=== PATIENT | female | born 1935 | race Caucasian/White ===

== ENCOUNTER 2022-09-23 14:54 | Emergency (ER) | payer MEDICARE, OTHER ==
--- NOTE | 2022-09-23 14:58 | ED Physician Documentation ---
History of Present Illness - Stated complaint Stated Complaint: KRIS/CONFUSED - History obtained from History obtained from: EMS - Additonal information Additional information: This is an 87-year-old woman who presents by ambulance. She is unable to give much of a history due to dementia. Reportedly lives with her son and arrives because [employer] was worried about her during a welfare check. She is disheveled and covered in feces. There is no running water in the house. Reportedly is not eating or drinking much. Reportedly the son is just not very supportive. She has a history of hypertension and diabetes which is currently untreated. She is on no meds. PD PAST MEDICAL HISTORY - Allergies Allergies/Adverse Reactions: Allergies Allergy/AdvReac Type Severity Reaction Status Date / Time Unable to Assess Allergy Verified 09/23/22 15:05 PD ED PE NORMAL - Vitals Vital signs reviewed: Yes - General General: Other (She is alert and oriented to person but not place or time or events; She is disheveled. There is feces on her socks.) - HEENT HEENT: PERRL, EOMI - Neck Neck: Supple, no meningeal sign, No bony TTP - Cardiac Cardiac: RRR, No murmur - Respiratory Respiratory: No respiratory distress, Clear bilaterally - Abdomen Abdomen: Normal bowel sounds, Soft, Non tender - Back Back: No CVA TTP, No spinal TTP - Derm Derm: Normal color, Warm and dry, Other (Rolled, no bedsores) - Extremities Extremities: No edema, No calf tenderness / cord - Neuro Eye Opening: Spontaneous Motor: Obeys Commands Verbal: Confused GCS Score: 14 Results - Vitals Vitals: Vital Signs - 24 hr 09/23/22 09/23/22 09/23/22 15:02 15:18 15:53 Temperature 37.1 C Heart Rate 79 72 Respiratory 18 18 16 Rate Blood Pressure 138/103 H O2 Saturation 98 96 09/23/22 09/23/22 09/23/22 16:36 17:53 18:32 Temperature Heart Rate 68 72 Respiratory 16 16 18 Rate Blood Pressure 176/154 H O2 Saturation 98 98 Oxygen O2 Source Room air - EKG (time done) 1639 Rate: Rate (enter#) (68) Rhythm: NSR [place]: Normal Intervals: Normal DE QRS: LVH Ischemia: Normal ST segments - Labs Labs: Laboratory Tests 09/23/22 09/23/2209/23/23 15:19 15:19 15:23 WBC RBC Hgb Hct MCV MCH MCHC RDW Plt Count MPV Neut # (Auto) Lymph # (Auto) [place] # (Auto) Eos # (Auto) Baso # (Auto) Absolute Nucleated RBC Nucleated RBC % Sodium Potassium Chloride Carbon Dioxide Anion Gap BUN Creatinine Estimated GFR (MDRD) Glucose Calcium Total Bilirubin AST ALT Alkaline Phosphatase Total Protein Albumin Globulin Albumin/Globulin Ratio Lipase TSH Urine Color YELLOW Urine Clarity CLOUDY Urine pH 7.5 Ur Specific [place] 1.015 Urine Protein NEGATIVE Urine Glucose (UA) NEGATIVE Urine Ketones TRACE Urine Occult Blood SMALL H Urine Nitrite NEGATIVE Urine Bilirubin NEGATIVE Urine Urobilinogen 0.2 (NORMAL) Ur Leukocyte Esterase SMALL H Urine RBC 6-10 H Urine WBC 6-10 H Ur Squamous Epith Cells FEW Squamous Amorphous Sediment Moderate Urine Bacteria Few Ur Microscopic Review INDICATED Urine Culture Comments INDICATED Salicylates Urine Opiates Screen NEGATIVE Ur Oxycodone Screen NEGATIVE Urine Methadone Screen NEGATIVE Ur Propoxyphene Screen NEGATIVE Acetaminophen Ur Barbiturates Screen NEGATIVE Ur Tricyclics Screen NEGATIVE Ur Phencyclidine Scrn NEGATIVE Ur Amphetamine Screen NEGATIVE U Methamphetamines Scrn NEGATIVE U Benzodiazepines Scrn NEGATIVE Urine Cocaine Screen NEGATIVE U Cannabinoids Screen NEGATIVE Ethyl Alcohol SARS-CoV-2 (PCR) NOT DETECTED 09/23/22 09/23/22 09/23/22 15:52 15:52 15:52 WBC 4.9 RBC 4.10 L Hgb 12.9 Hct 39.6 MCV 96.6 MCH 31.5 H MCHC 32.6 RDW 14.2 Plt Count 147 MPV 9.4 Neut # (Auto) 3.5 Lymph # (Auto) 0.9 L [place] # (Auto) 0.3 Eos # (Auto) 0.0 Baso # (Auto) 0.0 Absolute Nucleated RBC 0.00 Nucleated RBC % 0.0 Sodium 132 L Potassium 3.7 Chloride 99 L Carbon Dioxide 23 Anion Gap 10.0 BUN 25 H Creatinine 0.5 Estimated GFR (MDRD) 116 Glucose 109 H Calcium 9.1 Total Bilirubin 0.9 AST 21 ALT 14 Alkaline Phosphatase 44 Total Protein 7.4 Albumin 3.8 Globulin 3.6 Albumin/Globulin Ratio 1.1 Lipase 41 TSH 2.23 Urine Color Urine Clarity Urine pH Ur Specific [place] Urine Protein Urine Glucose (UA) Urine Ketones Urine Occult Blood Urine Nitrite Urine Bilirubin Urine Urobilinogen Ur Leukocyte Esterase Urine RBC Urine WBC Ur Squamous Epith Cells Amorphous Sediment Urine Bacteria Ur Microscopic Review Urine Culture Comments Salicylates < 6.0 Urine Opiates Screen Ur Oxycodone Screen Urine Methadone Screen Ur Propoxyphene Screen Acetaminophen < 10 L Ur Barbiturates Screen Ur Tricyclics Screen Ur Phencyclidine Scrn Ur Amphetamine Screen U Methamphetamines Scrn U Benzodiazepines Scrn Urine Cocaine Screen U Cannabinoids Screen Ethyl Alcohol < 5.0 SARS-CoV-2 (PCR) PD Medical Decision Making - ED course ED course: 87-year-old woman presents because her son has not been caring for her and she is demented. Telepsych saw her and recommended 12.5 mg of Seroquel as needed agitation. She will need to be placed and we will likely need to get guardianship. Possible UTI, pt unable to corroborate any sx so will tx with 5 days macrobid. Departure - Departure Clinical Impression: Inadequate social support Dementia Qualifiers: Dementia type: unspecified type Dementia severity: severe Dementia behavioral or psychological symptom: unspecified whether behavioral, psychotic, or mood disturbance or anxiety Qualified Code(s): F03.C0 - Unspecified dementia, severe, without behavioral disturbance, psychotic disturbance, mood disturbance, and anxiety Condition: Stable
[2022-09-23 15:24] LABS: MUDS CUTOFF CONCENTRATIONS CUTOFF CONC BELOW:
[2022-09-23 15:32] LABS: BILIRUBIN,URINE NEGATIVE (NEGATIVE); GLUCOSE, URINE (UA) NEGATIVE (NEGATIVE); KETONES,URINE (UA) TRACE mg/dL (NEGATIVE); LEUKOCYTE ESTERASE, URINE SMALL (NEGATIVE); NITRITE,URINE NEGATIVE (NEGATIVE); OCCULT BLOOD,URINE SMALL (NEGATIVE); PH,URINE 7.5 PH (5.0-7.5); PROTEIN,URINE NEGATIVE (NEGATIVE); UROBILINOGEN,URINE 0.2 (NORMAL) E.U./dL (NORMAL)
[2022-09-23 15:34] LABS: CLARITY,URINE CLOUDY (CLEAR)
[2022-09-23 15:46] LABS: AMORPHOUS SEDIMENT,UR Moderate /LPF; AMPHETAMINE SCREEN,URINE NEGATIVE (NEGATIVE); BACTERIA,URINE Few /HPF (None Seen); BARBITURATE SCREEN,UR NEGATIVE (NEGATIVE); BENZODIAZEPINES SCREEN, URINE NEGATIVE (NEGATIVE); COCAINE SCREEN URINE NEGATIVE (NEGATIVE); METHADONE SCREEN, URINE NEGATIVE (NEGATIVE); METHAMPHETAMINES SCREEN, URINE NEGATIVE (NEGATIVE); OPIATE SCREEN, URINE NEGATIVE (NEGATIVE); SQUAMOUS EPITHELIAL CELL,UR FEW Squamous (<= Few); THC CANNABINOID SCREEN, URINE NEGATIVE (NEGATIVE); TRICYCLIC ANTIDEPRESSANT,URINE NEGATIVE (NEGATIVE)
[2022-09-23 15:47] LABS: OXYCODONE SCREEN, URINE NEGATIVE (NEGATIVE); PROPOXYPHENE SCREEN, URINE NEGATIVE (NEGATIVE)
[2022-09-23 16:00] LABS: BASOPHILS % (AUTO) 0.4 %; EOSINOPHILS % (AUTO) 0.8 %; HCT - HEMATOCRIT 39.6 % (37.0-47.0); HGB - HEMOGLOBIN 12.9 g/dL (12.0-16.0); LYMPHOCYTES # (AUTO) 0.9 10^3/uL (1.5-3.5); LYMPHOCYTES % (AUTO) 19.3 %; MEAN CORPUSCULAR HEMOGLOBIN 31.5 pg (27.0-31.0); MEAN CORPUSCULAR HGB CONC 32.6 g/dL (32.0-36.0); MEAN CORPUSCULAR VOLUME 96.6 fL (81.0-99.0); MEAN PLATELET VOLUME 9.4 fL (7.9-10.8); MONOCYTES # (AUTO) 0.3 10^3/uL (0.0-1.0); NEUTROPHILS # (AUTO) 3.5 10^3/uL (1.5-6.6); NEUTROPHILS % (AUTO) 72.3 %; PLT - PLATELET COUNT 147 10^3/uL (130-450); RED CELL DISTRIBUTION WIDTH 14.2 % (12.0-15.0); WHITE BLOOD COUNT 4.9 x10^3/uL (4.8-10.8)
[2022-09-23 16:19] LABS: ACETAMINOPHEN < 10 ug/mL (10-30); ALBUMIN 3.8 g/dL (3.2-5.5); ALBUMIN/GLOBULIN RATIO 1.1 (1.0-2.2); ALKALINE PHOSPHATASE 44 IU/L (42-121); ALT ALANINE AMINOTRANSFERASE 14 IU/L (10-60); AST ASPARTATE AMINOTRANSFERASE 21 IU/L (10-42); BILIRUBIN,TOTAL 0.9 mg/dL (0.2-1.0); BUN - BLOOD UREA NITROGEN 25 mg/dL (6-20); CALCIUM 9.1 mg/dL (8.5-10.3); CARBON DIOXIDE - CO2 23 mmol/L (21-32); CHLORIDE 99 mmol/L (101-111); CREATININE 0.5 mg/dL (0.4-1.0); ETOH - ETHANOL < 5.0 mg/dL; GFR - MDRD 116 (>89); GLUCOSE 109 mg/dL (70-100); LIPASE 41 U/L (22-51); POTASSIUM 3.7 mmol/L (3.5-5.0); SALICYLATE < 6.0 mg/dL; SODIUM 132 mmol/L (135-145); TOTAL PROTEIN 7.4 g/dL (6.7-8.2)
--- NOTE | 2022-09-23 19:00 | TELEPSYCH PHYS NOTE ---
Telepsych Consultation Note Consult: Name: Ismael JudgeB: 1935 DateandTime: 09/23/2022 9:10:45 PM Location of the patient: [facility] of the doctor: Dali Length of consult: 60min This evaluation was conducted via video telepsychiatry with the assistance of onsite staff Reason for consult: dementia Requested by: HARI ZABALA History of Present Illness: PT is a 87y/o female brought in after being found unkempt, disheveled and covered in feces. She ate as if she were starving. She is unable to provide history, stating "I don't know what happen". "Police come to house, I was going to eat bread, chicken and vegetable. I took last medicine but no refill. I see PA." PT said she did not know where she was. She was not able to answer any direct questions. IT was reported that she lives with her son and APS was contacted for concerns of neglect. Her water was shut off due to nonpayment in June. Collateral Contacted: [place] for not contacting the collateral:None available Sleep issues?: Unknown-NA Psychiatric History/Treatment History: Past diagnoses: unknown Hospitalizations: Unknown-NA Current Treatment:No Suicide Assessment: PSS-3: 1) Over the past 2 weeks have you felt down, depressed or hopeless?Unknown-NA 2) Over the past 2 weeks have you had thoughts of killing yourself?Unknown-NA 3) Have you ever in your life attempted to kill yourself?Unknown-NA Within the past 6 months? [facility] Safety Assessment: Risk Factors Stressors: inability to care for own needs Attempts/Self-injury: Unknown-NA Impulsivity:Unknown-NA Drug/Alcohol History:No Trauma History:Unknown-NA Access to firearms:Unknown-NA HI/Violence/Property destruction:Unknown-NA Legal: Unknown-NA Family Psych History:Unknown-NA Family History of suicide:Unknown-NA Protective Factors: Can handle stress well?Unknown-NA Amish?Unknown-NA External: Social supports/ Therapeutic relationships: No Relationship history: Living situation: with son Employment: No Education: unknown Responsibility to family/children/work: No Future orientation:Unknown-NA Health History: Medical History: Diabetes Htn Medications & Freq: She is supposed to be on medication but has not had any Allergies: Unknown Mental Status Exam: Appearance and Attire:Disheveled, Thin Psychomotor agitation:No abnormality Attitude and behavior:Guarded Speech:Broken tongan, unclear primary language Mood:Anxious Affect:Intense Thought process:Vague Thought content:No abnormality Perception:unable to assess Intel:Average Abstract:Poor reasoning Language:unable to assess Orientation:Oriented to person Sense:Distractible Knowledge:unable to assess Memory:unable to assess Insight:Lack of awareness of problems, Severe impairment Judgement:Severe impairment, Impaired in self care, Impaired in treatment compliance Gait:Did not observe Impression/Risk Assessment: Current Suicide Risk Elevated?No Current Violence Risk Elevated?No Issues with ability to care for self?Yes Description:PT found disheveled with feces on her, no running water and question if she has been eating Summary: 87y/o female was brought in when police went to arrest her son and found her disheveled and covered in feces. She had no running water due to nonpayment back in June. PT was confused, anxious, stating she does not know what happened. She said she did not know why the police came or where she was. SHe did not answer any questions directly. She was not able to provide any hist ory. IT was reported that she has diabetes and hypertension but has not been on her medication. An empty bottle from 2020 was found but no other medication per [place]. Patient was not able to tell me what medical issues she has or what she does for them, where she is, why she was picked up, the date or who she lives with. Given patient confusion and inability to care for her own needs, she is in need of placement for safety. Diagnosis: F03.91 Unspecified dementia with behavioral disturbance CPT Codes: 50078 - Psychiatric Diagnostic Evaluation with Medical Services Treatment Plan: General: General Geriatric Precautions: Ensure that patient has prescription lenses/glasses and hearing aids (if applicable), speak slowly and clearly when communicating with patient, open window shades during the daytime, frequent re- orientation by staff and family members, walks/exercise (as feasible). Maintain consistent care staff as much as possible for familiarity. Create a calm atmosphere by limiting background noise of TV/radio, clearing clutter and maintain as consistent of routine as possible. Issues with ability to care for self? Yes Description: patient gravely disabled by dementia, cannot provide for basic ADLs/self-care/housing / safety and is in need of placement. Level of Care: Placement for assistance in care Psychiatric Clearance: No Observation level 1:1 needed?: YesNotes:Or close observation per house protocol Pharmacological: Seroquel 12.5mg po qid prn agitation Patient psychotic?No Therapy: supportive Follow up needed while in the hospital?: YesNumber of times:Please consult psych as needed while awaiting placement Discussed plan with onsite steam heating installer: Yes Who Dr Zabala List names and roles of persons who participated in consult: Ismael/patient and Allison Rivas MD
[2022-09-23] MEDS: NITROFURANTOIN MACRO 100 MG CAPSULE PO SCH (20:25)
[2022-09-23] MEDS ORDERED: OLANZapine 10 MG VIAL IM STA ×2 (22:03→23:30)
--- NOTE | 2022-09-23 22:17 | ED Physician Documentation ---
ED Addendum - Addendum Addendum: 09/23/22 22:17 patient endorsed to me by Dr. Zabala. I assessed the patient and IM zyprexa was provided for anxiety.
[2022-09-24] MEDS: MULTIVITAMIN TABLET PO SCH (08:36)
[2022-09-24] MEDS: NITROFURANTOIN MACRO 100 MG CAPSULE PO SCH ×2 (08:36→20:40)
--- NOTE | 2022-09-24 10:04 | ED Physician Documentation ---
ED Addendum - Addendum Addendum: 09/24/22 10:02 The patient is awake and interacts to the level of stating she wanted help to sit up in bed more to eat breakfast. She had eaten part of the breakfast with help from staff. She is moving all extremities. She is quite frail and thin looking. Her skin is cleansed but does appear irritated diffusely and looks to need some lotion and skin care. The patient is clearly unable to care for self and will be a placement issue. From social work etc. this sounds like a be a longer-term issue. We will see if the patient will be able to be boarded on the MedSurg unit as part of the ER. We will talk with the hospitalist and nursing building construction supervisor at rounds this morning.
[2022-09-25] MEDS: EMOLLIENT CREAM 57 GM TUBE TOP SCH ×2 (08:11→20:10)
[2022-09-25] MEDS: MULTIVITAMIN TABLET PO SCH (11:04)
[2022-09-25] MEDS: NITROFURANTOIN MACRO 100 MG CAPSULE PO SCH ×2 (11:04→20:04)
--- NOTE | 2022-09-25 15:30 | ED Physician Documentation ---
ED Addendum - Addendum Addendum: 09/25/22 15:29 The patient was evaluated by speech therapist who does the clinical swallow eval and the feeling was the patient was able to be increased to small chewable foods and thickened. The patient was able to chew but was not able to chew large amount so needed to be chopped ahead. Emphasis on protein and the patient prefers chicken. Nutrition consult is still pending. No other reported issues per nursing notes.
[2022-09-25] MEDS: ACETAMINOPHEN 500 MG TABLET PO PRN (20:03)
[2022-09-26] MEDS: MULTIVITAMIN W/MINERALS TABLET PO SCH (09:22)
[2022-09-26] MEDS: EMOLLIENT CREAM 57 GM TUBE TOP SCH ×2 (09:22→22:19)
[2022-09-26] MEDS: NITROFURANTOIN MACRO 100 MG CAPSULE PO SCH ×2 (09:22→22:19)
[2022-09-26] MEDS: ACETAMINOPHEN 500 MG TABLET PO PRN (17:20)
[2022-09-27] MEDS: EMOLLIENT CREAM 57 GM TUBE TOP SCH ×2 (09:13→20:36)
[2022-09-27] MEDS: NITROFURANTOIN MACRO 100 MG CAPSULE PO SCH ×2 (09:13→20:36)
[2022-09-27] MEDS: MULTIVITAMIN W/MINERALS TABLET PO SCH (09:13)
[2022-09-27] MEDS: ACETAMINOPHEN 500 MG TABLET PO PRN (14:20)
--- NOTE | 2022-09-27 18:48 | ED Physician Documentation ---
ED Addendum - Addendum Addendum: 09/27/22 18:43 87-year-old female admitted to the hospital when it was apparent she was not being cared for at home. It has taken multiple care takers over several days to get the feces off of her skin and from between her toes. She has excessively long toenails which have grown in to the base of her foot. She is not ambulatory. She is complaining of being cold and but is eating and eliminating well. She complains of pain in her mouth. She has not been ambulated in the hospital and they are waiting until her nails are trimmed by the shipping processor before attempting ambulation. Placement is not in her immediate future as she has legal issues for [employer]
[2022-09-27] MEDS: MIN OIL/DIMETHICON/COCONUT OIL 92 GM TUBE TOP SCH (20:36)
--- NOTE | 2022-09-28 07:18 | ED Physician Documentation ---
ED Addendum - Addendum Addendum: 09/28/22 07:17 Patient seen and examined at bedside. She was sleeping and not roused. We did have an overnight SBAR from the nurse concerned about a blood pressure 158/61. Her blood pressure trends were reviewed, she has had some similar numbers, but also at times she is very normotensive including yesterday afternoon at 126/54 and the day prior at 120/64. As such we will continue to monitor her blood pressures but I do not see the need for antihypertensive at this time. Other abad the nurse voiced no ongoing needs. Most recent social work notes reviewed. Reportedly the directional survey drafter is coming to cut her nails in 2 days, on Thursday. Otherwise I do not see any specific recent notes from social work regarding disposition, presume she will be boarding long-term.
[2022-09-28] MEDS: NITROFURANTOIN MACRO 100 MG CAPSULE PO SCH ×2 (08:36→20:35)
[2022-09-28] MEDS: EMOLLIENT CREAM 57 GM TUBE TOP SCH ×2 (08:36→20:34)
[2022-09-28] MEDS: MIN OIL/DIMETHICON/COCONUT OIL 92 GM TUBE TOP SCH ×2 (08:36→20:34)
[2022-09-28] MEDS: MULTIVITAMIN W/MINERALS TABLET PO SCH (08:36)
[2022-09-29] MEDS: MIN OIL/DIMETHICON/COCONUT OIL 92 GM TUBE TOP SCH ×2 (08:55→20:23)
[2022-09-29] MEDS: MULTIVITAMIN W/MINERALS TABLET PO SCH (08:55)
[2022-09-29] MEDS: EMOLLIENT CREAM 57 GM TUBE TOP SCH ×2 (08:55→20:23)
[2022-09-30] MEDS: ACETAMINOPHEN 500 MG TABLET PO PRN (01:54)
[2022-09-30] MEDS: MULTIVITAMIN W/MINERALS TABLET PO SCH (08:17)
[2022-09-30] MEDS: MIN OIL/DIMETHICON/COCONUT OIL 92 GM TUBE TOP SCH ×2 (08:17→21:32)
[2022-09-30] MEDS: EMOLLIENT CREAM 57 GM TUBE TOP SCH ×2 (08:17→21:31)
[2022-10-01] MEDS: MIN OIL/DIMETHICON/COCONUT OIL 92 GM TUBE TOP SCH ×2 (09:27→20:25)
[2022-10-01] MEDS: EMOLLIENT CREAM 57 GM TUBE TOP SCH ×2 (09:27→20:26)
[2022-10-01] MEDS: MULTIVITAMIN W/MINERALS TABLET PO SCH (09:27)
[2022-10-01] MEDS ORDERED: PSYLLIUM PACKET PO PRN (12:07)
[2022-10-01] MEDS ORDERED: MINERAL OIL ENEMA 133 ML BOTTLE RC ONE (13:00)
[2022-10-01] MEDS: DOCUSATE SODIUM 100 MG CAPSULE PO SCH (13:19)
--- NOTE | 2022-10-01 15:43 | ED Physician Documentation ---
ED Addendum - Addendum Addendum: 10/01/22 15:42 The patient is reportedly doing okay on current medications and diet. Skin care is ongoing. The patient apparently had not had a bowel movement for couple of days and request from nursing was for a an enema and stool softeners. I wrote orders for those. Otherwise no particular change in treatment at this time.
[2022-10-01] MEDS: ACETAMINOPHEN 500 MG TABLET PO PRN (18:07)
[2022-10-02] MEDS: MULTIVITAMIN W/MINERALS TABLET PO SCH (09:17)
[2022-10-02] MEDS: DOCUSATE SODIUM 100 MG CAPSULE PO SCH (09:22)
[2022-10-02] MEDS: EMOLLIENT CREAM 57 GM TUBE TOP SCH ×2 (11:57→20:21)
[2022-10-02] MEDS: MIN OIL/DIMETHICON/COCONUT OIL 92 GM TUBE TOP SCH ×2 (12:02→20:22)
[2022-10-02] MEDS: ACETAMINOPHEN 500 MG TABLET PO PRN (15:11)
--- NOTE | 2022-10-02 16:01 | ED Physician Documentation ---
ED Addendum - Addendum Addendum: 10/02/22 16:00 I was notified by the nursing staff that the patient continues to have some constipation. When turning the patient she has stool on the wipes but hard impaction near the rectum. They did request a mineral enema which I have ordered. Otherwise the nursing staff have no complaints and the patient has had no worrisome vital sign abnormalities.
[2022-10-02] MEDS ORDERED: MINERAL OIL ENEMA 133 ML BOTTLE RC ONE (16:30)
[2022-10-03] MEDS: DOCUSATE SODIUM 100 MG CAPSULE PO SCH (08:26)
[2022-10-03] MEDS: MULTIVITAMIN W/MINERALS TABLET PO SCH (08:26)
[2022-10-03] MEDS: EMOLLIENT CREAM 57 GM TUBE TOP SCH ×2 (08:26→21:30)
[2022-10-03] MEDS: MIN OIL/DIMETHICON/COCONUT OIL 92 GM TUBE TOP SCH ×2 (08:26→21:31)
[2022-10-04] MEDS: MULTIVITAMIN W/MINERALS TABLET PO SCH (08:57)
[2022-10-04] MEDS: DOCUSATE SODIUM 100 MG CAPSULE PO SCH (09:03)
[2022-10-04] MEDS: MIN OIL/DIMETHICON/COCONUT OIL 92 GM TUBE TOP SCH ×2 (09:03→22:21)
[2022-10-04] MEDS: EMOLLIENT CREAM 57 GM TUBE TOP SCH ×2 (09:04→22:21)
[2022-10-04] MEDS: ACETAMINOPHEN 500 MG TABLET PO PRN (11:22)
[2022-10-04] MEDS: QUEtiapine 25 MG TABLET PO PRN (22:48)
[2022-10-05] MEDS: MULTIVITAMIN W/MINERALS TABLET PO SCH (08:58)
[2022-10-05] MEDS: EMOLLIENT CREAM 57 GM TUBE TOP SCH ×2 (08:58→22:15)
[2022-10-05] MEDS: DOCUSATE SODIUM 100 MG CAPSULE PO SCH (08:58)
[2022-10-05] MEDS: MIN OIL/DIMETHICON/COCONUT OIL 92 GM TUBE TOP SCH ×2 (08:59→22:15)
[2022-10-05] MEDS: ACETAMINOPHEN 500 MG TABLET PO PRN (13:05)
--- NOTE | 2022-10-05 18:29 | ED Physician Documentation ---
ED Addendum - Addendum Addendum: 10/05/22 18:28 Patient seen and examined at bedside. She has no complaints other than she would like her bed readjusted. Per the nurse she was a little agitated last night but responded well to as needed Seroquel. Still waiting on disposition.
[2022-10-06] MEDS: EMOLLIENT CREAM 57 GM TUBE TOP SCH ×2 (09:03→20:07)
[2022-10-06] MEDS: DOCUSATE SODIUM 100 MG CAPSULE PO SCH (09:03)
[2022-10-06] MEDS: MULTIVITAMIN W/MINERALS TABLET PO SCH (09:03)
[2022-10-06] MEDS: ACETAMINOPHEN 500 MG TABLET PO PRN (09:03)
[2022-10-06] MEDS: MIN OIL/DIMETHICON/COCONUT OIL 92 GM TUBE TOP SCH ×2 (09:04→20:07)
--- NOTE | 2022-10-06 19:52 | ED Physician Documentation ---
ED Addendum - Addendum Addendum: 10/06/22 19:52 Patient seen and examined at bedside. She is been eating well. She asked me for dessert. She appears well. Vital signs reviewed, blood pressure is high normal. Social work notes reviewed, they are still trying to work with APS. She is boarding for placement. Nurse voiced no needs.
[2022-10-06] MEDS: QUEtiapine 25 MG TABLET PO PRN (20:06)
--- NOTE | 2022-10-07 08:18 | ED Physician Documentation ---
ED Addendum - Addendum Addendum: 10/07/22 08:18 Patient 87-year-old female evaluated independently at bedside at approximately 0815 hrs. Found to be resting comfortably and in no acute distress. Patient had no acute complaints. We will continue to monitor.
[2022-10-07] MEDS: DOCUSATE SODIUM 100 MG CAPSULE PO SCH (08:28)
[2022-10-07] MEDS: MULTIVITAMIN W/MINERALS TABLET PO SCH (08:28)
[2022-10-07] MEDS: EMOLLIENT CREAM 57 GM TUBE TOP SCH ×2 (08:28→20:35)
[2022-10-07] MEDS: MIN OIL/DIMETHICON/COCONUT OIL 92 GM TUBE TOP SCH ×2 (08:28→20:35)
[2022-10-07] MEDS: ACETAMINOPHEN 500 MG TABLET PO PRN ×2 (09:49→20:34)
[2022-10-07] MEDS: QUEtiapine 25 MG TABLET PO PRN ×2 (11:43→20:34)
[2022-10-08] MEDS: ACETAMINOPHEN 500 MG TABLET PO PRN ×2 (07:58→18:19)
[2022-10-08] MEDS: MIN OIL/DIMETHICON/COCONUT OIL 92 GM TUBE TOP SCH ×2 (07:58→20:58)
[2022-10-08] MEDS: EMOLLIENT CREAM 57 GM TUBE TOP SCH ×2 (07:58→20:58)
[2022-10-08] MEDS: MULTIVITAMIN W/MINERALS TABLET PO SCH (07:58)
[2022-10-08] MEDS: DOCUSATE SODIUM 100 MG CAPSULE PO SCH (07:58)
--- NOTE | 2022-10-08 13:02 | ED Physician Documentation ---
ED Addendum - Addendum Addendum: 10/08/22 13:02 No changes occurred during my shift on September 29. This is a late entry. Patient continued to board
--- NOTE | 2022-10-08 13:05 | ED Physician Documentation ---
ED Addendum - Addendum Addendum: 10/08/22 21:31 Duplicate note, please disregard.
[2022-10-08] MEDS: QUEtiapine 25 MG TABLET PO PRN (18:19)
--- NOTE | 2022-10-08 18:28 | ED Physician Documentation ---
ED Addendum - Addendum Addendum: 10/08/22 18:27 The patient was signed out to me at change of shift, pending final disposition by social work and presumed placement in a [place] [facility] or assisted living facility. The patient had no complaints throughout the day and required no additional interventions, other than the scheduled medications and intervention she already has. There is no deterioration in her status. At this point in time, she signed out to the oncoming emergency physician, pending placement by social work.
[2022-10-09] MEDS: DOCUSATE SODIUM 100 MG CAPSULE PO SCH (07:47)
[2022-10-09] MEDS: ACETAMINOPHEN 500 MG TABLET PO PRN (07:47)
[2022-10-09] MEDS: EMOLLIENT CREAM 57 GM TUBE TOP SCH ×2 (07:48→21:00)
[2022-10-09] MEDS: MIN OIL/DIMETHICON/COCONUT OIL 92 GM TUBE TOP SCH ×2 (07:48→21:00)
[2022-10-09] MEDS: MULTIVITAMIN W/MINERALS TABLET PO SCH (07:52)
--- NOTE | 2022-10-09 19:08 | ED Physician Documentation ---
ED Addendum - Addendum Addendum: 10/09/22 19:07 Patient signed out to me at change of shift, continuing to pend placement in a long-term care facility, and continuing to board on inpatient unit under ED care. The patient had no acute issues today. Nursing staff reported no issues. Patient is continued to take her meals and her scheduled medications. Signed out to oncoming emergency physician, continuing to pend final disposition
[2022-10-10] MEDS: QUEtiapine 25 MG TABLET PO PRN (00:25)
[2022-10-10] MEDS: ACETAMINOPHEN 500 MG TABLET PO PRN ×2 (08:36→18:51)
[2022-10-10] MEDS: EMOLLIENT CREAM 57 GM TUBE TOP SCH ×2 (08:42→21:24)
[2022-10-10] MEDS: MIN OIL/DIMETHICON/COCONUT OIL 92 GM TUBE TOP SCH ×2 (08:43→21:24)
[2022-10-10] MEDS: DOCUSATE SODIUM 100 MG CAPSULE PO SCH (08:54)
[2022-10-10] MEDS: MULTIVITAMIN W/MINERALS TABLET PO SCH (08:54)
--- NOTE | 2022-10-10 14:29 | ED Physician Documentation ---
ED Addendum - Addendum Addendum: 10/10/22 14:28 No problems arose on the patient since yesterday. Nursing notes did not reveal any abnormalities. Morning nursing rounds said there were no problems. At this point we are still pending placement for long-term care. The patient continues with routine hygiene as well as diet and some limited activity. No change in current treatment. It should be noted I had reviewed with nursing staff on 6 prior shifts of [facility] on 10/03 and 10/04 and there had not been any need for change in treatments on those days as well.
[2022-10-11] MEDS: ACETAMINOPHEN 500 MG TABLET PO PRN ×2 (04:57→18:12)
[2022-10-11] MEDS: MULTIVITAMIN W/MINERALS TABLET PO SCH (07:54)
[2022-10-11] MEDS: DOCUSATE SODIUM 100 MG CAPSULE PO SCH (07:55)
[2022-10-11] MEDS: MIN OIL/DIMETHICON/COCONUT OIL 92 GM TUBE TOP SCH ×2 (07:58→18:12)
[2022-10-11] MEDS: EMOLLIENT CREAM 57 GM TUBE TOP SCH ×2 (10:56→18:12)
--- NOTE | 2022-10-11 14:43 | ED Physician Documentation ---
ED Addendum - Addendum Addendum: 10/11/22 14:43 No acute events overnight. Patient continues to board awaiting placement.
[2022-10-11] MEDS: QUEtiapine 25 MG TABLET PO PRN (18:12)
[2022-10-12] MEDS: DOCUSATE SODIUM 100 MG CAPSULE PO SCH (08:35)
[2022-10-12] MEDS: MULTIVITAMIN W/MINERALS TABLET PO SCH (08:35)
[2022-10-12] MEDS: MIN OIL/DIMETHICON/COCONUT OIL 92 GM TUBE TOP SCH ×2 (08:39→20:52)
[2022-10-12] MEDS: EMOLLIENT CREAM 57 GM TUBE TOP SCH ×2 (08:39→20:52)
--- NOTE | 2022-10-12 19:49 | ED Physician Documentation ---
ED Addendum - Addendum Addendum: 10/12/22 19:48 The patient was signed out to me at change of shift, continuing to pend long- term placement by social work. The patient had no acute issues today and nursing staff reported no issues as well. The patient ate and took her meds as ordered. She will continue to remain in the hospital, pending final disposition. She is signed out to the oncoming emergency physician, pending the above.
[2022-10-12] MEDS: ACETAMINOPHEN 500 MG TABLET PO PRN (23:34)
[2022-10-12] MEDS: QUEtiapine 25 MG TABLET PO PRN (23:34)
[2022-10-13] MEDS: MULTIVITAMIN W/MINERALS TABLET PO SCH ×2 (10:43→10:47)
[2022-10-13] MEDS: ACETAMINOPHEN 500 MG TABLET PO PRN (10:43)
[2022-10-13] MEDS: DOCUSATE SODIUM 100 MG CAPSULE PO SCH ×2 (10:43→10:47)
--- NOTE | 2022-10-13 12:27 | ED Physician Documentation ---
ED Addendum - Addendum Addendum: 10/13/22 12:27 Discussion with the nursing fuel system maintenance supervisor this morning showed no issues or problems. The patient apparently does have the call light a lot but fairly minor things. No change in treatment needed.
[2022-10-13] MEDS: MIN OIL/DIMETHICON/COCONUT OIL 92 GM TUBE TOP SCH ×2 (15:08→20:33)
[2022-10-13] MEDS: EMOLLIENT CREAM 57 GM TUBE TOP SCH ×2 (15:08→20:33)
[2022-10-13] MEDS: QUEtiapine 25 MG TABLET PO PRN (20:30)
[2022-10-14] MEDS: EMOLLIENT CREAM 57 GM TUBE TOP SCH ×2 (09:03→21:00)
[2022-10-14] MEDS: MIN OIL/DIMETHICON/COCONUT OIL 92 GM TUBE TOP SCH ×2 (09:04→21:00)
[2022-10-14] MEDS: ACETAMINOPHEN 500 MG TABLET PO PRN (09:09)
[2022-10-14] MEDS: DOCUSATE SODIUM 100 MG CAPSULE PO SCH (09:09)
[2022-10-14] MEDS: MULTIVITAMIN W/MINERALS TABLET PO SCH (09:09)
--- NOTE | 2022-10-14 09:37 | ED Physician Documentation ---
ED Addendum - Addendum Addendum: 10/14/22 09:36 Late addendum: The patient was signed out to me at change of shift on September 30, continuing to pend social work evaluation and final disposition of placement in long-term care Facility. The patient had no issues during my shift and required no interventions. She took all her meds as ordered and ate her meals. She was signed out to the oncoming emergency physician at the end of my shift, continuing to pend final disposition by social work, And continuing to board on the medical floor under the emergency department's care.
--- NOTE | 2022-10-14 20:19 | ED Physician Documentation ---
ED Addendum - Addendum Addendum: 10/14/22 20:19 I received a phone call from the [facility] nursing staff. They state that the patient's abdomen felt distended, they did a bladder scan and it read 1520. She has had issues with urinary retention in the past. A Lujan catheter was placed.
[2022-10-15] MEDS: MULTIVITAMIN W/MINERALS TABLET PO SCH (08:41)
[2022-10-15] MEDS: DOCUSATE SODIUM 100 MG CAPSULE PO SCH (08:41)
[2022-10-15] MEDS: ACETAMINOPHEN 500 MG TABLET PO PRN ×2 (09:47→19:45)
[2022-10-15] MEDS: MIN OIL/DIMETHICON/COCONUT OIL 92 GM TUBE TOP SCH ×2 (10:05→19:46)
[2022-10-15] MEDS: EMOLLIENT CREAM 57 GM TUBE TOP SCH ×2 (10:05→19:46)
[2022-10-15] MEDS: QUEtiapine 25 MG TABLET PO PRN (19:45)
[2022-10-16] MEDS: DOCUSATE SODIUM 100 MG CAPSULE PO SCH (08:13)
[2022-10-16] MEDS: ACETAMINOPHEN 500 MG TABLET PO PRN ×2 (08:13→22:01)
[2022-10-16] MEDS: MULTIVITAMIN W/MINERALS TABLET PO SCH (08:13)
[2022-10-16] MEDS: MIN OIL/DIMETHICON/COCONUT OIL 92 GM TUBE TOP SCH ×2 (08:14→22:02)
[2022-10-16] MEDS: EMOLLIENT CREAM 57 GM TUBE TOP SCH ×2 (08:14→22:02)
--- NOTE | 2022-10-16 12:46 | ED Physician Documentation ---
ED Addendum - Addendum Addendum: 10/16/22 12:46 Patient seen and examined at bedside. She is sitting up in bed watching TV and eating her lunch. She has no specific complaints. Nurse notes that she was retaining urine the other night and a Lujan has been in for the last couple of days. Unclear if urinary retention was a one-time issue or more of a chronic phenomenon. For patient safety we will discontinue the Lujan and monitor her to see if she starts retaining again, she may need a long-term Lujan but it would be nice to avoid for infection prevention issues.
[2022-10-16] MEDS: QUEtiapine 25 MG TABLET PO PRN (22:01)
[2022-10-17] MEDS: EMOLLIENT CREAM 57 GM TUBE TOP SCH ×2 (08:59→22:03)
[2022-10-17] MEDS: MIN OIL/DIMETHICON/COCONUT OIL 92 GM TUBE TOP SCH ×2 (08:59→22:04)
[2022-10-17] MEDS: ACETAMINOPHEN 500 MG TABLET PO PRN ×2 (08:59→22:03)
[2022-10-17] MEDS: DOCUSATE SODIUM 100 MG CAPSULE PO SCH (08:59)
[2022-10-17] MEDS: MULTIVITAMIN W/MINERALS TABLET PO SCH (08:59)
--- NOTE | 2022-10-17 11:58 | ED Physician Documentation ---
ED Addendum - Addendum Addendum: 10/17/22 11:56 Patient seen and examined at bedside. Her nurse was not available at the time I visited, there were concerns overnight about urinary retention, see my note from yesterday. The [employer] was at the bedside and had just performed a bladder scan and it was 322 mL.
[2022-10-17 17:06] LABS: BILIRUBIN,URINE NEGATIVE (NEGATIVE); GLUCOSE, URINE (UA) NEGATIVE (NEGATIVE); KETONES,URINE (UA) NEGATIVE (NEGATIVE); LEUKOCYTE ESTERASE, URINE NEGATIVE (NEGATIVE); NITRITE,URINE NEGATIVE (NEGATIVE); OCCULT BLOOD,URINE TRACE-LYSE (NEGATIVE); PROTEIN,URINE NEGATIVE (NEGATIVE); UROBILINOGEN,URINE 0.2 (NORMAL) E.U./dL (NORMAL)
[2022-10-17 17:07] LABS: CLARITY,URINE CLEAR (CLEAR)
[2022-10-17] MEDS: QUEtiapine 25 MG TABLET PO PRN (22:06)
[2022-10-18] MEDS: ACETAMINOPHEN 500 MG TABLET PO PRN ×2 (06:44→20:18)
--- NOTE | 2022-10-18 07:51 | ED Physician Documentation ---
ED Addendum - Addendum Addendum: 10/18/22 07:50 Patient seen this morning at the bedside but is sleeping so I continue to let her rest without waking her. Her Lujan catheter is in place and draining clear yellow urine.I met with her nurse and there are no acute issues to be addressed this morning.Her urinalysis results from yesterday appear unremarkable without signs of infection. Patient continues to board awaiting safe disposition.
[2022-10-18] MEDS: DOCUSATE SODIUM 100 MG CAPSULE PO SCH (08:42)
[2022-10-18] MEDS: MULTIVITAMIN W/MINERALS TABLET PO SCH (08:42)
[2022-10-18] MEDS: MIN OIL/DIMETHICON/COCONUT OIL 92 GM TUBE TOP SCH ×2 (08:43→21:03)
[2022-10-18] MEDS: EMOLLIENT CREAM 57 GM TUBE TOP SCH ×2 (08:43→21:03)
[2022-10-18] MEDS: QUEtiapine 25 MG TABLET PO PRN (20:18)
[2022-10-19] MEDS: MIN OIL/DIMETHICON/COCONUT OIL 92 GM TUBE TOP SCH ×2 (09:16→19:49)
[2022-10-19] MEDS: MULTIVITAMIN W/MINERALS TABLET PO SCH (09:17)
[2022-10-19] MEDS: EMOLLIENT CREAM 57 GM TUBE TOP SCH ×2 (09:17→19:49)
[2022-10-19] MEDS: DOCUSATE SODIUM 100 MG CAPSULE PO SCH (09:17)
--- NOTE | 2022-10-19 13:52 | ED Physician Documentation ---
ED Addendum - Addendum Addendum: 10/19/22 13:51 Patient doing well this morning. No complaints overnight. Still awaiting placement. Nursing staff states had a bowel movement this morning and ate breakfast. Patient has no complaints.
[2022-10-19] MEDS: QUEtiapine 25 MG TABLET PO PRN (19:49)
[2022-10-19] MEDS: ACETAMINOPHEN 500 MG TABLET PO PRN (19:49)
[2022-10-20] MEDS: ACETAMINOPHEN 500 MG TABLET PO PRN ×2 (09:10→15:01)
[2022-10-20] MEDS: MULTIVITAMIN W/MINERALS TABLET PO SCH (09:10)
[2022-10-20] MEDS: EMOLLIENT CREAM 57 GM TUBE TOP SCH ×2 (09:10→21:00)
[2022-10-20] MEDS: DOCUSATE SODIUM 100 MG CAPSULE PO SCH (09:10)
[2022-10-20] MEDS: MIN OIL/DIMETHICON/COCONUT OIL 92 GM TUBE TOP SCH ×2 (09:11→21:03)
--- NOTE | 2022-10-20 19:22 | ED Physician Documentation ---
ED Addendum - Addendum Addendum: 10/20/22 19:21 The patient signed out to me at change of shift, continuing to pend long-term care placement. She has been boarding on our inpatient floor under ED care. The patient took all of her medications today as ordered. She ate her meals. She had no complaints. No new issues have arisen medically while she has been here. She is signed out to the oncoming emergency physician at change of shift, continuing to pend the same disposition.
[2022-10-21] MEDS: ACETAMINOPHEN 500 MG TABLET PO PRN ×2 (01:20→08:30)
--- NOTE | 2022-10-21 08:29 | ED Physician Documentation ---
ED Addendum - Addendum Addendum: 10/21/22 08:28 Patient seen and examined at bedside. She is laying in bed watching TV. Lujan in place. Reviewed social work note from yesterday, it seems efforts at placement have stalled.
[2022-10-21] MEDS: DOCUSATE SODIUM 100 MG CAPSULE PO SCH (08:30)
[2022-10-21] MEDS: EMOLLIENT CREAM 57 GM TUBE TOP SCH ×2 (08:30→21:25)
[2022-10-21] MEDS: MULTIVITAMIN W/MINERALS TABLET PO SCH (08:30)
[2022-10-21] MEDS: MIN OIL/DIMETHICON/COCONUT OIL 92 GM TUBE TOP SCH ×2 (08:30→21:25)
[2022-10-21 14:21] LABS: BILIRUBIN,URINE NEGATIVE (NEGATIVE); GLUCOSE, URINE (UA) NEGATIVE (NEGATIVE); KETONES,URINE (UA) NEGATIVE (NEGATIVE); LEUKOCYTE ESTERASE, URINE LARGE (NEGATIVE); NITRITE,URINE POSITIVE (NEGATIVE); OCCULT BLOOD,URINE MODERATE (NEGATIVE); PROTEIN,URINE TRACE mg/dL (NEGATIVE); UROBILINOGEN,URINE 0.2 (NORMAL) E.U./dL (NORMAL)
[2022-10-21 14:28] LABS: CLARITY,URINE CLOUDY (CLEAR); RBC,URINE TNTC /HPF (0-5); WBC,URINE >25 /HPF (0-5)
[2022-10-21 14:29] LABS: BACTERIA,URINE Moderate /HPF (None Seen); SQUAMOUS EPITHELIAL CELL,UR RARE Squamous (<= Few)
--- NOTE | 2022-10-21 14:46 | ED Physician Documentation ---
ED Addendum - Addendum Addendum: 10/21/22 14:46 RN notified me that her urine was looking purulent today. I went back and reassessed the patient and she does have some suprapubic tenderness, albeit the urine in the Lujan really is not that discolored. Urinalysis was done and she does have new pyuria. I put in a nursing order to replace the Lujan and we will start her on ciprofloxacin pending culture.
[2022-10-21] MEDS: CIPROFLOXACIN 250 MG TABLET PO SCH ×2 (16:58→21:25)
--- NOTE | 2022-10-22 09:30 | ED Physician Documentation ---
ED Addendum - Addendum Addendum: 10/22/22 09:30 Patient seen and examined at bedside. She was sleeping and not awoken. Her nurse was not immediately available. Her preliminary urine culture is E. coli. Sensitivities are pending. We replaced her catheter yesterday. By "we" I mean the nurse. Her vital signs of shown for the most part mild hypertension with some normotensive range numbers. The remainder of her vital signs are unremarkable.
[2022-10-22] MEDS: ACETAMINOPHEN 500 MG TABLET PO PRN ×2 (10:15→19:37)
[2022-10-22] MEDS: DOCUSATE SODIUM 100 MG CAPSULE PO SCH (10:15)
[2022-10-22] MEDS: MULTIVITAMIN W/MINERALS TABLET PO SCH (10:15)
[2022-10-22] MEDS: MIN OIL/DIMETHICON/COCONUT OIL 92 GM TUBE TOP SCH ×2 (10:16→21:52)
[2022-10-22] MEDS: EMOLLIENT CREAM 57 GM TUBE TOP SCH ×2 (10:16→21:52)
[2022-10-22] MEDS: CIPROFLOXACIN 250 MG TABLET PO SCH ×2 (10:16→21:51)
[2022-10-22] MEDS: QUEtiapine 25 MG TABLET PO PRN (21:52)
[2022-10-23] MEDS: CIPROFLOXACIN 250 MG TABLET PO SCH ×2 (08:52→20:54)
[2022-10-23] MEDS: ACETAMINOPHEN 500 MG TABLET PO PRN (08:52)
[2022-10-23] MEDS: MULTIVITAMIN W/MINERALS TABLET PO SCH (08:52)
[2022-10-23] MEDS: EMOLLIENT CREAM 57 GM TUBE TOP SCH ×2 (08:53→20:55)
[2022-10-23] MEDS: MIN OIL/DIMETHICON/COCONUT OIL 92 GM TUBE TOP SCH ×2 (08:53→20:55)
[2022-10-23] MEDS: DOCUSATE SODIUM 100 MG CAPSULE PO SCH (08:53)
--- NOTE | 2022-10-23 16:25 | ED Physician Documentation ---
ED Addendum - Addendum Addendum: 10/23/22 16:24 No reported needs or abnormalities on morning report from nursing staff. Continue with current medications and diet etc.
[2022-10-24] MEDS: ACETAMINOPHEN 500 MG TABLET PO PRN ×2 (09:31→20:35)
[2022-10-24] MEDS: DOCUSATE SODIUM 100 MG CAPSULE PO SCH (09:32)
[2022-10-24] MEDS: MIN OIL/DIMETHICON/COCONUT OIL 92 GM TUBE TOP SCH ×2 (09:32→21:28)
[2022-10-24] MEDS: MULTIVITAMIN W/MINERALS TABLET PO SCH (09:32)
[2022-10-24] MEDS: EMOLLIENT CREAM 57 GM TUBE TOP SCH ×2 (09:32→21:28)
[2022-10-24] MEDS: CIPROFLOXACIN 250 MG TABLET PO SCH ×2 (09:32→21:29)
--- NOTE | 2022-10-24 17:13 | ED Physician Documentation ---
ED Addendum - Addendum Addendum: 10/24/22 17:12 No noted problems from nursing on daily round meeting. Continue current treatment plan. Patient reportedly with good BM today. 10/24/22 17:12
[2022-10-24] MEDS: QUEtiapine 25 MG TABLET PO PRN (23:52)
[2022-10-25] MEDS: DOCUSATE SODIUM 100 MG CAPSULE PO SCH (08:51)
[2022-10-25] MEDS: CIPROFLOXACIN 250 MG TABLET PO SCH ×2 (08:51→20:21)
[2022-10-25] MEDS: MULTIVITAMIN W/MINERALS TABLET PO SCH (08:51)
[2022-10-25] MEDS: ACETAMINOPHEN 500 MG TABLET PO PRN ×2 (08:51→18:10)
[2022-10-25] MEDS: EMOLLIENT CREAM 57 GM TUBE TOP SCH ×2 (08:53→20:21)
[2022-10-25] MEDS: MIN OIL/DIMETHICON/COCONUT OIL 92 GM TUBE TOP SCH ×2 (08:53→20:22)
--- NOTE | 2022-10-25 19:27 | ED Physician Documentation ---
ED Addendum - Addendum Addendum: 10/25/22 19:26 NO change in status from nursing notes and in nursing motor assembly supervisor morning report. Social Work says no progress on finding placement as yet.
[2022-10-25] MEDS: QUEtiapine 25 MG TABLET PO PRN (20:20)
[2022-10-26] MEDS: ACETAMINOPHEN 500 MG TABLET PO PRN ×3 (05:53→20:35)
[2022-10-26] MEDS: MULTIVITAMIN W/MINERALS TABLET PO SCH (10:35)
[2022-10-26] MEDS: DOCUSATE SODIUM 100 MG CAPSULE PO SCH (10:35)
[2022-10-26] MEDS: EMOLLIENT CREAM 57 GM TUBE TOP SCH ×2 (10:35→20:35)
[2022-10-26] MEDS: MIN OIL/DIMETHICON/COCONUT OIL 92 GM TUBE TOP SCH ×2 (10:36→20:36)
[2022-10-26] MEDS: CIPROFLOXACIN 250 MG TABLET PO SCH ×2 (10:36→20:35)
--- NOTE | 2022-10-26 21:00 | ED Physician Documentation ---
ED Addendum - Addendum Addendum: 10/26/22 20:59 No change in status. Continuing with regular diet/meds. No flags from nursing notes.
[2022-10-27] MEDS: ACETAMINOPHEN 500 MG TABLET PO PRN ×3 (08:00→16:36)
[2022-10-27] MEDS: CIPROFLOXACIN 250 MG TABLET PO SCH ×2 (08:01→22:01)
[2022-10-27] MEDS: EMOLLIENT CREAM 57 GM TUBE TOP SCH ×2 (13:02→22:01)
[2022-10-27] MEDS: DOCUSATE SODIUM 100 MG CAPSULE PO SCH (13:02)
[2022-10-27] MEDS: MULTIVITAMIN W/MINERALS TABLET PO SCH (13:02)
[2022-10-27] MEDS: MIN OIL/DIMETHICON/COCONUT OIL 92 GM TUBE TOP SCH ×2 (13:02→22:02)
--- NOTE | 2022-10-27 19:03 | ED Physician Documentation ---
ED Addendum - Addendum Addendum: 10/27/22 19:03 No acute changes on my shift. Patient continues to board awaiting placement. Nursing staff had no concerns.
[2022-10-28] MEDS: ACETAMINOPHEN 500 MG TABLET PO PRN ×2 (09:20→18:11)
[2022-10-28] MEDS: CIPROFLOXACIN 250 MG TABLET PO SCH ×2 (09:20→22:19)
[2022-10-28] MEDS: EMOLLIENT CREAM 57 GM TUBE TOP SCH ×2 (09:21→22:19)
[2022-10-28] MEDS: MULTIVITAMIN W/MINERALS TABLET PO SCH (09:21)
[2022-10-28] MEDS: DOCUSATE SODIUM 100 MG CAPSULE PO SCH (09:21)
[2022-10-28] MEDS: MIN OIL/DIMETHICON/COCONUT OIL 92 GM TUBE TOP SCH ×2 (09:22→22:19)
[2022-10-28] MEDS: QUEtiapine 25 MG TABLET PO PRN (13:42)
--- NOTE | 2022-10-28 15:55 | ED Physician Documentation ---
ED Addendum - Addendum Addendum: 10/28/22 15:54 No change in needs per nursing grease refining supervisor on rounds this morning. Apparently the patient does call the call light a lot but seems to be more just comfortable with somebody in the room. Otherwise not particularly anxious per se. At this point no particular change in treatment and therapy.
[2022-10-29] MEDS: ACETAMINOPHEN 500 MG TABLET PO PRN ×3 (06:35→22:56)
[2022-10-29] MEDS: MULTIVITAMIN W/MINERALS TABLET PO SCH (08:27)
[2022-10-29] MEDS: DOCUSATE SODIUM 100 MG CAPSULE PO SCH (08:27)
[2022-10-29] MEDS: CIPROFLOXACIN 250 MG TABLET PO SCH ×2 (08:27→21:09)
[2022-10-29] MEDS: EMOLLIENT CREAM 57 GM TUBE TOP SCH ×2 (08:27→21:23)
[2022-10-29] MEDS: MIN OIL/DIMETHICON/COCONUT OIL 92 GM TUBE TOP SCH ×2 (08:28→21:23)
--- NOTE | 2022-10-29 16:23 | ED Physician Documentation ---
ED Addendum - Addendum Addendum: 10/29/22 16:22 No particular change in treatment as suggested by any nursing notes.
[2022-10-29] MEDS: QUEtiapine 25 MG TABLET PO PRN (22:30)
[2022-10-30] MEDS: MULTIVITAMIN W/MINERALS TABLET PO SCH (08:22)
[2022-10-30] MEDS: DOCUSATE SODIUM 100 MG CAPSULE PO SCH (08:23)
[2022-10-30] MEDS: CIPROFLOXACIN 250 MG TABLET PO SCH ×2 (08:23→20:07)
[2022-10-30] MEDS: EMOLLIENT CREAM 57 GM TUBE TOP SCH ×2 (08:24→20:08)
[2022-10-30] MEDS: MIN OIL/DIMETHICON/COCONUT OIL 92 GM TUBE TOP SCH ×2 (08:24→20:08)
[2022-10-30] MEDS: ACETAMINOPHEN 500 MG TABLET PO PRN (13:15)
--- NOTE | 2022-10-30 18:26 | ED Physician Documentation ---
ED Addendum - Addendum Addendum: 10/30/22 18:25 No reported problems from the patient's nurse. We will continue current medications diet and plan.
[2022-10-31] MEDS: QUEtiapine 25 MG TABLET PO PRN ×2 (02:05→17:13)
[2022-10-31] MEDS: ACETAMINOPHEN 500 MG TABLET PO PRN ×3 (02:05→17:14)
[2022-10-31] MEDS: MULTIVITAMIN W/MINERALS TABLET PO SCH (08:41)
[2022-10-31] MEDS: DOCUSATE SODIUM 100 MG CAPSULE PO SCH (08:41)
--- NOTE | 2022-10-31 08:45 | ED Physician Documentation ---
ED Addendum - Addendum Addendum: 10/31/22 08:45 The patient did have some restlessness overnight, this seemed to calm down quickly with Tylenol, Seroquel and feeding the patient. No other acute issues overnight. Patient continues to board awaiting placement.
[2022-10-31] MEDS: CIPROFLOXACIN 250 MG TABLET PO SCH ×2 (11:22→20:44)
[2022-10-31] MEDS: EMOLLIENT CREAM 57 GM TUBE TOP SCH ×2 (14:20→20:45)
[2022-10-31] MEDS: MIN OIL/DIMETHICON/COCONUT OIL 92 GM TUBE TOP SCH ×2 (14:22→20:45)
[2022-11-01] MEDS: ACETAMINOPHEN 500 MG TABLET PO PRN ×3 (05:44→19:38)
[2022-11-01] MEDS: DOCUSATE SODIUM 100 MG CAPSULE PO SCH (08:02)
[2022-11-01] MEDS: MULTIVITAMIN W/MINERALS TABLET PO SCH (08:02)
[2022-11-01] MEDS: MIN OIL/DIMETHICON/COCONUT OIL 92 GM TUBE TOP SCH ×2 (08:04→19:39)
[2022-11-01] MEDS: EMOLLIENT CREAM 57 GM TUBE TOP SCH ×2 (08:04→19:39)
[2022-11-01] MEDS: CIPROFLOXACIN 250 MG TABLET PO SCH ×2 (12:13→19:39)
--- NOTE | 2022-11-01 13:44 | ED Physician Documentation ---
ED Addendum - Addendum Addendum: 11/01/22 13:41 No reported complaints overnight. Patient doing well today. Continues to board awaiting placement. The nursing did pass on an SBAR note to change her diet to include 3 high- protein snacks daily to help on her calorie intake. Currently she is getting 1 or 2 carbohydrate type supplements. I tried to manipulate the diet order to adjust for that. I believe I did but I had the hospitalist, Dr. Perry evaluate and she said she would adjust it accordingly.
[2022-11-01] MEDS: QUEtiapine 25 MG TABLET PO PRN (17:30)
[2022-11-02] MEDS: MULTIVITAMIN W/MINERALS TABLET PO SCH (08:15)
[2022-11-02] MEDS: DOCUSATE SODIUM 100 MG CAPSULE PO SCH (08:15)
[2022-11-02] MEDS: EMOLLIENT CREAM 57 GM TUBE TOP SCH ×2 (08:16→20:26)
[2022-11-02] MEDS: MIN OIL/DIMETHICON/COCONUT OIL 92 GM TUBE TOP SCH ×2 (08:16→20:26)
[2022-11-02] MEDS: ACETAMINOPHEN 500 MG TABLET PO PRN (12:00)
[2022-11-02] MEDS: CIPROFLOXACIN 250 MG TABLET PO SCH ×2 (12:01→20:25)
--- NOTE | 2022-11-02 15:30 | ED Physician Documentation ---
ED Addendum - Addendum Addendum: 11/02/22 15:29 No particular needs identified on nursing report this morning. Dietary change was done by hospitalist yesterday.
[2022-11-02] MEDS: QUEtiapine 25 MG TABLET PO PRN (20:26)
[2022-11-03] MEDS: MULTIVITAMIN W/MINERALS TABLET PO SCH (07:52)
[2022-11-03] MEDS: ACETAMINOPHEN 500 MG TABLET PO PRN ×2 (08:41→14:59)
[2022-11-03] MEDS: MIN OIL/DIMETHICON/COCONUT OIL 92 GM TUBE TOP SCH ×2 (09:00→21:29)
[2022-11-03] MEDS: EMOLLIENT CREAM 57 GM TUBE TOP SCH ×2 (09:00→21:28)
[2022-11-03] MEDS: DOCUSATE SODIUM 100 MG CAPSULE PO SCH (09:00)
[2022-11-03] MEDS: CIPROFLOXACIN 250 MG TABLET PO SCH ×2 (11:19→21:28)
--- NOTE | 2022-11-03 14:29 | ED Physician Documentation ---
ED Addendum - Addendum Addendum: 11/03/22 14:29 No problems noted on morning rounds with nursing. Maintain current treatment plan.
[2022-11-03] MEDS: QUEtiapine 25 MG TABLET PO PRN (21:28)
[2022-11-04] MEDS: EMOLLIENT CREAM 57 GM TUBE TOP SCH ×2 (08:04→21:26)
[2022-11-04] MEDS: MIN OIL/DIMETHICON/COCONUT OIL 92 GM TUBE TOP SCH ×2 (08:04→21:30)
[2022-11-04] MEDS: MULTIVITAMIN W/MINERALS TABLET PO SCH (08:04)
[2022-11-04] MEDS: DOCUSATE SODIUM 100 MG CAPSULE PO SCH (08:04)
[2022-11-04] MEDS: ACETAMINOPHEN 500 MG TABLET PO PRN ×2 (13:04→21:26)
[2022-11-04] MEDS: CIPROFLOXACIN 250 MG TABLET PO SCH ×2 (13:09→21:25)
[2022-11-04] MEDS: QUEtiapine 25 MG TABLET PO PRN (21:25)
[2022-11-05] MEDS: DOCUSATE SODIUM 100 MG CAPSULE PO SCH (08:41)
[2022-11-05] MEDS: MULTIVITAMIN W/MINERALS TABLET PO SCH (08:41)
[2022-11-05] MEDS: EMOLLIENT CREAM 57 GM TUBE TOP SCH ×2 (08:41→20:43)
[2022-11-05] MEDS: MIN OIL/DIMETHICON/COCONUT OIL 92 GM TUBE TOP SCH ×2 (08:41→20:43)
[2022-11-05] MEDS: ACETAMINOPHEN 500 MG TABLET PO PRN ×3 (08:51→20:44)
--- NOTE | 2022-11-05 09:28 | ED Physician Documentation ---
ED Addendum - Addendum Addendum: Patient remains boarding. She is awaiting placement and safe disposition. Guardianship is pending. No acute events overnight or issues to be Addressed at this time.
[2022-11-05] MEDS: CIPROFLOXACIN 250 MG TABLET PO SCH ×2 (11:59→20:43)
[2022-11-05] MEDS: QUEtiapine 25 MG TABLET PO PRN (20:43)
[2022-11-06] MEDS: MULTIVITAMIN W/MINERALS TABLET PO SCH (09:00)
[2022-11-06] MEDS: QUEtiapine 25 MG TABLET PO PRN ×2 (09:01→20:37)
[2022-11-06] MEDS: DOCUSATE SODIUM 100 MG CAPSULE PO SCH (09:01)
[2022-11-06] MEDS: EMOLLIENT CREAM 57 GM TUBE TOP SCH ×2 (09:01→20:40)
[2022-11-06] MEDS: MIN OIL/DIMETHICON/COCONUT OIL 92 GM TUBE TOP SCH ×2 (09:01→20:40)
[2022-11-06] MEDS: ACETAMINOPHEN 500 MG TABLET PO PRN ×3 (09:07→20:37)
--- NOTE | 2022-11-06 19:13 | ED Physician Documentation ---
ED Addendum - Addendum Addendum: 11/06/22 19:12 Today Luyc has had her Lujan catheter removed after 2 weeks and this evening she has not voided yet. We did bladder scanner found about 340 mils in her bladder. We will keep a close eye on her this evening for urine output. Plan to rescan if she has not voided by 10 PM
[2022-11-07] MEDS: DOCUSATE SODIUM 100 MG CAPSULE PO SCH (10:58)
[2022-11-07] MEDS: MULTIVITAMIN W/MINERALS TABLET PO SCH (11:00)
[2022-11-07] MEDS: ACETAMINOPHEN 500 MG TABLET PO PRN ×2 (11:00→22:08)
[2022-11-07] MEDS: MIN OIL/DIMETHICON/COCONUT OIL 92 GM TUBE TOP SCH ×2 (11:00→20:08)
[2022-11-07] MEDS: EMOLLIENT CREAM 57 GM TUBE TOP SCH ×2 (11:01→20:07)
--- NOTE | 2022-11-07 17:41 | ED Physician Documentation ---
ED Addendum - Addendum Addendum: 11/07/22 17:40 The patient overall had an uneventful day with the exception of needing a catheter replaced, due to retaining urine again. Nursing staff did call me to apprise me of the situation and if Lujan replacement was ordered. The patient had no other issues through the day and remains boarding on the floor under ED care with ultimate plan for long-term care placement. She is signed out to the oncoming emergency physician.
[2022-11-08] MEDS: QUEtiapine 25 MG TABLET PO PRN ×3 (00:37→17:38)
[2022-11-08] MEDS: ACETAMINOPHEN 500 MG TABLET PO PRN ×2 (08:34→14:06)
[2022-11-08] MEDS: MULTIVITAMIN W/MINERALS TABLET PO SCH (08:34)
[2022-11-08] MEDS: DOCUSATE SODIUM 100 MG CAPSULE PO SCH (08:34)
[2022-11-08] MEDS: MIN OIL/DIMETHICON/COCONUT OIL 92 GM TUBE TOP SCH (08:35)
[2022-11-08] MEDS: EMOLLIENT CREAM 57 GM TUBE TOP SCH (08:36)
--- NOTE | 2022-11-08 17:40 | ED Physician Documentation ---
ED Addendum - Addendum Addendum: 11/08/22 17:38 Minerva was not able to urinate after our last maneuver of removing her Lujan catheter 2 days ago. She had 2 voids by straight cath each with about 500 mL. She was not able to urinate when sat on the commode. She has had a Lujan catheter placed back in yesterday morning and it is draining clear urine. Nursing has noted that Lucy is on her call light continuously and seems a bit agitated especially when she was sat on the commode. They would like to use Seroquel and I have asked the nursing staff to document her response to it with the thought that we may use this medication on a regular basis if it is working well for her.
[2022-11-09] MEDS: QUEtiapine 25 MG TABLET PO PRN ×3 (01:30→17:17)
[2022-11-09] MEDS: ACETAMINOPHEN 500 MG TABLET PO PRN ×3 (01:30→15:41)
[2022-11-09] MEDS: MULTIVITAMIN W/MINERALS TABLET PO SCH (09:07)
[2022-11-09] MEDS: DOCUSATE SODIUM 100 MG CAPSULE PO SCH (09:07)
[2022-11-09] MEDS: MIN OIL/DIMETHICON/COCONUT OIL 92 GM TUBE TOP SCH ×4 (09:12→19:25)
--- NOTE | 2022-11-09 12:21 | ED Physician Documentation ---
ED Addendum - Addendum Addendum: 11/09/22 12:19 The patient was signed out to me at change of shift by the outgoing emergency physician, continuing to pend long-term care placement, and continuing to board on the floor under the ED. I was contacted by the nurse caring for the patient requesting that the patient have treatment for thrush. The patient was found to have a white coating on her tongue and I felt that it was reasonable to order p.o. nystatin for the patient. Otherwise the patient has been without issues today and will be signed out to the oncoming emergency physician, continuing to pend the above.
[2022-11-09] MEDS: MAGIC MOUTHWASH (NYSTATIN) 120 ML BOTTLE PO PRN (12:38)
--- NOTE | 2022-11-09 16:56 | ED Physician Documentation ---
ED Addendum - Addendum Addendum: 11/09/22 16:56 Patient evaluated and reviewed. No acute events overnight. Nursing staff has documented the patient continues to be anxious and needy. She was started on Seroquel. She also had a Lujan catheter placed for urinary retention. Her vital signs have been stable. Continues to board pending appropriate social work placement/disposition
[2022-11-10] MEDS: ACETAMINOPHEN 500 MG TABLET PO PRN ×2 (02:47→11:36)
[2022-11-10] MEDS: MULTIVITAMIN W/MINERALS TABLET PO SCH (08:25)
[2022-11-10] MEDS: MIN OIL/DIMETHICON/COCONUT OIL 92 GM TUBE TOP SCH ×2 (08:25→20:54)
[2022-11-10] MEDS: DOCUSATE SODIUM 100 MG CAPSULE PO SCH (08:25)
--- NOTE | 2022-11-10 15:19 | ED Physician Documentation ---
ED Addendum - Addendum Addendum: 11/10/22 15:18 Patient was signed out to me at change of shift, pending long-term care placement. She is boarding on the medical floor under the emergency service after being unable to take care of herself at home. She has continued to take her medications as directed and eat her meals. She has had no issues throughout the day and is signed out to the oncoming emergency physician, continuing to pend final disposition.
[2022-11-11] MEDS: MIN OIL/DIMETHICON/COCONUT OIL 92 GM TUBE TOP SCH ×2 (09:07→21:00)
[2022-11-11] MEDS: ACETAMINOPHEN 500 MG TABLET PO PRN (09:07)
[2022-11-11] MEDS: MULTIVITAMIN W/MINERALS TABLET PO SCH (09:07)
[2022-11-11] MEDS: DOCUSATE SODIUM 100 MG CAPSULE PO SCH (09:10)
--- NOTE | 2022-11-11 11:44 | ED Physician Documentation ---
ED Addendum - Addendum Addendum: 11/11/22 11:43 Nursing notes reported large bowel movement this morning. Otherwise no particular problems or complaints. Social work note from yesterday is stating still issues over insurance and etc. No signs of placement in site apparently.
--- NOTE | 2022-11-11 18:24 | ED Physician Documentation ---
ED Addendum - Addendum Addendum: 11/11/22 18:23 I was called to the medical surgical unit by the nurse, the patient was in her recliner when she tried to stand up and walk. She fell to the ground striking the right side of her head. No loss of consciousness. No vomiting. Initially there was complaint of shoulder pain, but patient denies this now. On exam there is a small abrasion to the right side of the forehead. No hematoma. No palpable skull fractures. Pupils equal round reactive to light. Extraocular movements intact. She is at her normal mental baseline. No neck pain or tenderness. No focal neurological deficits. Full range of motion of all major joints without pain. Head CT will be ordered. No spinal tenderness. No deformities in the extremities. Clear lungs. Soft abdomen. Patient also reportedly has had diarrhea, recently finished antibiotics for a UTI. We will order a C. difficile test. 11/11/22 23:[address] negative C. diff test.
--- NOTE | 2022-11-11 23:27 | CT Report ---
PROCEDURE: HEAD WO INDICATIONS: fall, head injury TECHNIQUE: Noncontrast 4.5 mm thick angled axial sections acquired from the foramen magnum to the vertex. For r adiation dose reduction, the following was used: automated exposure control, adjustment of mA and/or kV according to patient size. COMPARISON: None. FINDINGS: Image quality: Satisfactory CSF spaces: Basal cisterns are patent. Lateral ventricles are symmetric. Volume: Vascular calcifications. 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 Volume loss is present. These findings are moderate to severe. Brain: No acute hemorrhage or gross donovan-white differentiation loss. Suspected basal ganglia visualiz ation. Craniofacial structures: No displaced fracture. Sinuses are clear. Orbits are intact. IMPRESSION: No acute intracranial abnormality. Reviewed by: Néstor Guillory MD on 11/11/2022 11:39 PM PDT Approved by: Néstor Guillory MD on 11/11/2022 11:39 PM PDT Station ID: [id number]
[2022-11-12] MEDS: MAGIC MOUTHWASH (NYSTATIN) 120 ML BOTTLE PO PRN ×2 (09:40→13:18)
[2022-11-12] MEDS: QUEtiapine 25 MG TABLET PO PRN ×2 (09:41→21:29)
[2022-11-12] MEDS: ACETAMINOPHEN 500 MG TABLET PO PRN ×2 (09:42→19:08)
[2022-11-12] MEDS: DOCUSATE SODIUM 100 MG CAPSULE PO SCH (09:43)
[2022-11-12] MEDS: MIN OIL/DIMETHICON/COCONUT OIL 92 GM TUBE TOP SCH ×2 (09:43→21:30)
[2022-11-12] MEDS: MULTIVITAMIN W/MINERALS TABLET PO SCH (09:43)
[2022-11-12] MEDS: ZINC OXIDE 20% OINT 30 GM TUBE TOP PRN (09:44)
[2022-11-12] MEDS ORDERED: LOPERAMIDE 2 MG CAPSULE PO PRN (12:59)
[2022-11-12] MEDS ORDERED: MAGIC MOUTHWASH (NYSTATIN) 120 ML BOTTLE PO SCH (13:00)
[2022-11-12] MEDS ORDERED: MICONAZOLE CREAM 118 ML TUBE TOP SCH (14:00)
[2022-11-12] MEDS ORDERED: EMOLLIENT CREAM 57 GM TUBE TOP SCH (14:00)
[2022-11-12] MEDS: NYSTATIN 500000 UNITS/5 ML UDC PO SCH ×3 (14:39→21:33)
--- NOTE | 2022-11-12 15:32 | ED Physician Documentation ---
ED Addendum - Addendum Addendum: 11/12/22 15:32 Patient was signed out to me at change of shift, continuing to pend long-term care placement. She is boarding on the medical floor under emergency department care. The nursing staff on the floor did request treatment for diarrhea, oral thrush, and some skin breakdown. I did order as needed Imodium, barrier cream, and oral nystatin swish and spit for the patient. Otherwise she has had no other issues today and will continue to be followed by social work with the goal of finding long-term care placement. She is signed out to the oncoming emergency physician pending this dispo.
[2022-11-12] MEDS ORDERED: MICONAZOLE VAGINAL CREAM 45 GM TUBE VG SCH (16:00)
[2022-11-12] MEDS: MICONAZOLE CREAM (EXTRA-THICK) 92 GM TUBE TOP SCH (19:10)
[2022-11-13] MEDS: ACETAMINOPHEN 500 MG TABLET PO PRN ×3 (05:17→23:25)
--- NOTE | 2022-11-13 07:40 | ED Physician Documentation ---
ED Addendum - Addendum Addendum: Patient remains boarding under emergency department status awaiting placement/safe disposition. Discussed with her RN this morning. RN requests that we change the diet order to limit the Ensures that patient is able to have. Reportedly current order states unlimited amount of Ensure and the patient has been drinking a lot of Ensure through the day. RN states that white sugar supervisor recommended limiting it but she did not know of any number that the white sugar supervisor was recommending limiting it to. She was also unable to tell me how many the patient is currently drinking per day. Patient has had loose stools recently. C. difficile was negative on 11/11. As I am unsure how many Ensure the patient is currently drinking/day I will change the diet order to limit it to 3 times per day. No other issues from nursing staff. Patient is sitting up in bed, Appears comfortable with no reported issues.
[2022-11-13] MEDS: DOCUSATE SODIUM 100 MG CAPSULE PO SCH (08:36)
[2022-11-13] MEDS: MICONAZOLE CREAM (EXTRA-THICK) 92 GM TUBE TOP SCH ×2 (08:43→20:41)
[2022-11-13] MEDS: MULTIVITAMIN W/MINERALS TABLET PO SCH (08:43)
[2022-11-13] MEDS: MIN OIL/DIMETHICON/COCONUT OIL 92 GM TUBE TOP SCH ×2 (08:47→20:41)
[2022-11-13] MEDS: NYSTATIN 500000 UNITS/5 ML UDC PO SCH ×5 (08:47→20:39)
[2022-11-13] MEDS: QUEtiapine 25 MG TABLET PO PRN (20:40)
[2022-11-14] MEDS: MULTIVITAMIN W/MINERALS TABLET PO SCH (08:53)
[2022-11-14] MEDS: ACETAMINOPHEN 500 MG TABLET PO PRN ×2 (08:53→18:57)
[2022-11-14] MEDS: DOCUSATE SODIUM 100 MG CAPSULE PO SCH (08:54)
[2022-11-14] MEDS: QUEtiapine 25 MG TABLET PO PRN ×2 (08:54→22:40)
[2022-11-14] MEDS: NYSTATIN 500000 UNITS/5 ML UDC PO SCH ×4 (08:54→22:39)
[2022-11-14] MEDS: MICONAZOLE CREAM (EXTRA-THICK) 92 GM TUBE TOP SCH ×2 (08:55→22:39)
[2022-11-14] MEDS: MIN OIL/DIMETHICON/COCONUT OIL 92 GM TUBE TOP SCH ×2 (08:55→22:39)
--- NOTE | 2022-11-14 09:09 | ED Physician Documentation ---
ED Addendum - Addendum Addendum: 11/14/22 09:08 No acute events overnight. Patient continues to board awaiting placement.
[2022-11-14] MEDS: ZINC OXIDE 20% OINT 30 GM TUBE TOP PRN (22:39)
[2022-11-15] MEDS: DOCUSATE SODIUM 100 MG CAPSULE PO SCH (08:27)
[2022-11-15] MEDS: MULTIVITAMIN W/MINERALS TABLET PO SCH (08:27)
[2022-11-15] MEDS: MICONAZOLE CREAM (EXTRA-THICK) 92 GM TUBE TOP SCH ×2 (08:27→21:52)
--- NOTE | 2022-11-15 09:32 | ED Physician Documentation ---
ED Addendum - Addendum Addendum: Patient remains boarding under ED status on [facility].Social work continues to work on placement.Overnight required a dose of Seroquel for agitation.
[2022-11-15] MEDS: ACETAMINOPHEN 500 MG TABLET PO PRN ×2 (10:25→17:06)
[2022-11-15] MEDS: NYSTATIN 500000 UNITS/5 ML UDC PO SCH ×4 (10:27→21:52)
[2022-11-15] MEDS: MIN OIL/DIMETHICON/COCONUT OIL 92 GM TUBE TOP SCH ×2 (10:28→21:52)
[2022-11-15] MEDS: QUEtiapine 25 MG TABLET PO PRN (15:52)
[2022-11-16] MEDS: ZINC OXIDE 20% OINT 30 GM TUBE TOP PRN (08:49)
[2022-11-16] MEDS: MICONAZOLE CREAM (EXTRA-THICK) 92 GM TUBE TOP SCH ×2 (08:49→21:26)
[2022-11-16] MEDS: QUEtiapine 25 MG TABLET PO PRN (08:49)
[2022-11-16] MEDS: MULTIVITAMIN W/MINERALS TABLET PO SCH (08:49)
[2022-11-16] MEDS: DOCUSATE SODIUM 100 MG CAPSULE PO SCH (08:49)
[2022-11-16] MEDS: ACETAMINOPHEN 500 MG TABLET PO PRN ×2 (08:49→14:46)
[2022-11-16] MEDS: MIN OIL/DIMETHICON/COCONUT OIL 92 GM TUBE TOP SCH ×2 (08:49→21:26)
[2022-11-16] MEDS: NYSTATIN 500000 UNITS/5 ML UDC PO SCH ×3 (08:50→21:26)
--- NOTE | 2022-11-16 09:42 | ED Physician Documentation ---
ED Addendum - Addendum Addendum: 11/16/22 09:42 Patient seen and examined at bedside. She is sleeping comfortably. Vital signs reviewed, hypertensive at times, normotensive at others. Her nurse was not available, but nursing notes reviewed. Sounds like she was mildly agitated last night which resolved with her usual medications. Social work note from yesterday reviewed, Eve Aguilar is evaluating her. Guardianship has been assigned.
--- NOTE | 2022-11-16 09:59 | ED Physician Documentation ---
ED Addendum - Addendum Addendum: 11/16/22 09:59 Patient seen and examined at bedside. A few days ago there was talk of having our OMFS see him regarding his teeth. He does not have any tooth pain right now, I texted Dr. He Banks and he says he will see the patient.
[2022-11-17] MEDS: MIN OIL/DIMETHICON/COCONUT OIL 92 GM TUBE TOP SCH ×2 (09:06→20:57)
[2022-11-17] MEDS: ZINC OXIDE 20% OINT 30 GM TUBE TOP PRN (09:06)
[2022-11-17] MEDS: NYSTATIN 500000 UNITS/5 ML UDC PO SCH ×4 (09:06→22:55)
[2022-11-17] MEDS: QUEtiapine 25 MG TABLET PO PRN ×2 (09:07→20:56)
[2022-11-17] MEDS: MICONAZOLE CREAM (EXTRA-THICK) 92 GM TUBE TOP SCH ×2 (09:07→20:57)
[2022-11-17] MEDS: DOCUSATE SODIUM 100 MG CAPSULE PO SCH (09:07)
[2022-11-17] MEDS: MULTIVITAMIN W/MINERALS TABLET PO SCH (09:07)
--- NOTE | 2022-11-17 13:37 | ED Physician Documentation ---
ED Addendum - Addendum Addendum: 11/17/22 13:37 She was sleeping and not aroused for examination. Nurse voiced no specific concerns. Vital signs removed reviewed generally mildly hypertensive. No social work note yet today.
[2022-11-17] MEDS: ACETAMINOPHEN 500 MG TABLET PO PRN (16:21)
[2022-11-18] MEDS: ACETAMINOPHEN 500 MG TABLET PO PRN ×2 (08:55→20:47)
[2022-11-18] MEDS: QUEtiapine 25 MG TABLET PO PRN ×2 (08:55→22:54)
[2022-11-18] MEDS: NYSTATIN 500000 UNITS/5 ML UDC PO SCH ×4 (08:55→20:48)
[2022-11-18] MEDS: DOCUSATE SODIUM 100 MG CAPSULE PO SCH (08:55)
[2022-11-18] MEDS: MULTIVITAMIN W/MINERALS TABLET PO SCH (08:56)
[2022-11-18] MEDS: MICONAZOLE CREAM (EXTRA-THICK) 92 GM TUBE TOP SCH ×2 (08:56→20:49)
[2022-11-18] MEDS: MIN OIL/DIMETHICON/COCONUT OIL 92 GM TUBE TOP SCH ×2 (08:56→20:47)
[2022-11-18] MEDS ORDERED: OLANZapine ODT 5 MG TABLET TL STA (11:20)
--- NOTE | 2022-11-18 11:20 | ED Physician Documentation ---
ED Addendum - Addendum Addendum: 11/18/22 11:19 Patient seen and examined at bedside. She is somewhat agitated which per the nurse has been a bit of a problem over the last few days with incomplete resolution with her as needed Seroquel. I will add low-dose nighttime Zyprexa.
[2022-11-18] MEDS: OLANZapine ODT 5 MG TABLET TL SCH (20:47)
[2022-11-18] MEDS: ZINC OXIDE 20% OINT 30 GM TUBE TOP PRN (20:47)
[2022-11-19] MEDS: ACETAMINOPHEN 500 MG TABLET PO PRN ×2 (03:03→16:11)
--- NOTE | 2022-11-19 11:05 | ED Physician Documentation ---
ED Addendum - Addendum Addendum: 11/19/22 11:03 The patient was asleep when I went in to see her. Her breakfast was still on the table. The nursing said they were just allowing her to sleep as she seemed comfortable. Respirations were unlabored. No reports of problems from overnight nursing notes. Continue current plan. Social work states the patient is being reviewed by 2 places. They need a signature apparently from oven operator or such. She might be able to be placed in nursing facility "soon". I asked what the definition of soon was in the reply was perhaps a week or so.
[2022-11-19] MEDS: MULTIVITAMIN W/MINERALS TABLET PO SCH (11:13)
[2022-11-19] MEDS: DOCUSATE SODIUM 100 MG CAPSULE PO SCH (11:14)
[2022-11-19] MEDS: MICONAZOLE CREAM (EXTRA-THICK) 92 GM TUBE TOP SCH ×2 (11:14→20:03)
[2022-11-19] MEDS: MIN OIL/DIMETHICON/COCONUT OIL 92 GM TUBE TOP SCH ×2 (11:14→20:02)
[2022-11-19] MEDS: NYSTATIN 500000 UNITS/5 ML UDC PO SCH ×4 (11:14→22:54)
[2022-11-19] MEDS: QUEtiapine 25 MG TABLET PO PRN (20:01)
[2022-11-19] MEDS: OLANZapine ODT 5 MG TABLET TL SCH (22:48)
--- NOTE | 2022-11-20 08:48 | ED Physician Documentation ---
ED Addendum - Addendum Addendum: 11/20/22 08:47 Overnight nursing notes have no acute events. Up for breakfast. Social work note from yesterday states still waiting to hear back from [facility]. No current change in plan.
[2022-11-20] MEDS: NYSTATIN 500000 UNITS/5 ML UDC PO SCH ×4 (09:19→20:43)
[2022-11-20] MEDS: ACETAMINOPHEN 500 MG TABLET PO PRN ×2 (09:19→14:48)
[2022-11-20] MEDS: DOCUSATE SODIUM 100 MG CAPSULE PO SCH (09:19)
[2022-11-20] MEDS: MULTIVITAMIN W/MINERALS TABLET PO SCH (09:20)
[2022-11-20] MEDS: MIN OIL/DIMETHICON/COCONUT OIL 92 GM TUBE TOP SCH ×2 (09:20→20:47)
[2022-11-20] MEDS: MICONAZOLE CREAM (EXTRA-THICK) 92 GM TUBE TOP SCH ×2 (09:20→20:48)
[2022-11-20] MEDS: OLANZapine ODT 5 MG TABLET TL SCH (20:42)
--- NOTE | 2022-11-21 07:26 | ED Physician Documentation ---
ED Addendum - Addendum Addendum: Patient received a signout from outgoing physician, please see their documentation for further detail. 11/21/22 07:25 11/21/22 07:50 Patient evaluated independently at bedside. Found to be resting comfortably and in no acute distress. Requests meal tray. Discussed care with patient's and nurse. No acute events to report overnight.
[2022-11-21] MEDS: DOCUSATE SODIUM 100 MG CAPSULE PO SCH (09:06)
[2022-11-21] MEDS: MICONAZOLE CREAM (EXTRA-THICK) 92 GM TUBE TOP SCH ×2 (09:06→20:14)
[2022-11-21] MEDS: ACETAMINOPHEN 500 MG TABLET PO PRN (09:06)
[2022-11-21] MEDS: MIN OIL/DIMETHICON/COCONUT OIL 92 GM TUBE TOP SCH ×2 (09:06→20:13)
[2022-11-21] MEDS: QUEtiapine 25 MG TABLET PO PRN (09:06)
[2022-11-21] MEDS: MULTIVITAMIN W/MINERALS TABLET PO SCH (09:06)
[2022-11-21] MEDS: NYSTATIN 500000 UNITS/5 ML UDC PO SCH ×4 (09:07→20:13)
[2022-11-21] MEDS: OLANZapine ODT 5 MG TABLET TL SCH (20:13)
[2022-11-22] MEDS: MIN OIL/DIMETHICON/COCONUT OIL 92 GM TUBE TOP SCH ×2 (08:47→18:25)
[2022-11-22] MEDS: MICONAZOLE CREAM (EXTRA-THICK) 92 GM TUBE TOP SCH ×2 (08:47→18:25)
[2022-11-22] MEDS: MULTIVITAMIN W/MINERALS TABLET PO SCH (08:52)
[2022-11-22] MEDS: QUEtiapine 25 MG TABLET PO PRN ×2 (08:52→22:51)
[2022-11-22] MEDS: DOCUSATE SODIUM 100 MG CAPSULE PO SCH (08:52)
[2022-11-22] MEDS: ACETAMINOPHEN 500 MG TABLET PO PRN ×3 (08:52→22:52)
[2022-11-22] MEDS: NYSTATIN 500000 UNITS/5 ML UDC PO SCH ×4 (08:52→20:44)
--- NOTE | 2022-11-22 14:22 | ED Physician Documentation ---
ED Addendum - Addendum Addendum: Patient remains boarding under ED status awaiting placement and safe disposition. No acute events overnight. Social work continues to work on placement.Patient seen at the bedside, sitting upright watching a show. I was unable to locate the patient's nurse but did speak with the unit charge nurse.Patient reportedly had less outbursts yesterday. Still difficult to get the patient to want to mobilize or be out of the bed.
[2022-11-22] MEDS: ZINC OXIDE 20% OINT 30 GM TUBE TOP PRN (18:25)
[2022-11-22] MEDS: OLANZapine ODT 5 MG TABLET TL SCH (20:44)
[2022-11-23] MEDS: ZINC OXIDE 20% OINT 30 GM TUBE TOP PRN (07:00)
[2022-11-23] MEDS: ACETAMINOPHEN 500 MG TABLET PO PRN (08:12)
[2022-11-23] MEDS: QUEtiapine 25 MG TABLET PO PRN ×2 (08:15→16:47)
[2022-11-23] MEDS: DOCUSATE SODIUM 100 MG CAPSULE PO SCH (08:16)
[2022-11-23] MEDS: MULTIVITAMIN W/MINERALS TABLET PO SCH (08:16)
[2022-11-23] MEDS: NYSTATIN 500000 UNITS/5 ML UDC PO SCH ×4 (08:16→21:08)
[2022-11-23] MEDS ORDERED: ACETAMINOPHEN 500 MG TABLET PO PRN (08:22)
[2022-11-23] MEDS: MIN OIL/DIMETHICON/COCONUT OIL 92 GM TUBE TOP SCH ×2 (08:23→21:08)
[2022-11-23] MEDS: MICONAZOLE CREAM (EXTRA-THICK) 92 GM TUBE TOP SCH ×2 (08:23→21:08)
--- NOTE | 2022-11-23 08:42 | ED Physician Documentation ---
ED Addendum - Addendum Addendum: Patient is seen at the bedside with her RN also present in the room. RN has questions regarding 2 of her medications. Patient has been on nystatin since November 12 for oral thrush. RN asks when we are able to stop this. I will put a stop date for a total duration of 14 days To end on November 26. RN also has questions regarding her acetaminophen dosing. Patient has Acetaminophen 1000 mg are written for every 6 hours as needed for pain. Patient is getting this medication every 6 hours and is often calling out at the 4-hour alma stating she needs more Tylenol for her back. RN reports that she appears to be fixated on getting 2 pills. We will adjust the dosing to 650 mg every 4 hours as needed for pain. RN states that the Zyprexa appears to be helping the patient and her agitation has been less. Patient remains boarding awaiting a placement which social work is working on.
[2022-11-23] MEDS: ACETAMINOPHEN 325 MG TABLET PO PRN ×2 (16:48→21:07)
[2022-11-23] MEDS: OLANZapine ODT 5 MG TABLET TL SCH (21:07)
[2022-11-24] MEDS: ZINC OXIDE 20% OINT 30 GM TUBE TOP PRN (06:35)
[2022-11-24] MEDS: DOCUSATE SODIUM 100 MG CAPSULE PO SCH (09:06)
[2022-11-24] MEDS: NYSTATIN 500000 UNITS/5 ML UDC PO SCH ×4 (09:06→22:34)
[2022-11-24] MEDS: MULTIVITAMIN W/MINERALS TABLET PO SCH (09:06)
[2022-11-24] MEDS: MICONAZOLE CREAM (EXTRA-THICK) 92 GM TUBE TOP SCH ×2 (09:07→22:34)
[2022-11-24] MEDS: MIN OIL/DIMETHICON/COCONUT OIL 92 GM TUBE TOP SCH ×2 (09:07→22:34)
--- NOTE | 2022-11-24 09:43 | ED Physician Documentation ---
ED Addendum - Addendum Addendum: 11/24/22 09:43 Patient seen and examined at bedside. She is sleeping was not aroused. Nurse not immediately available. Vital signs reviewed, she has been persistently mildly hypertensive, albeit her diastolics are low so would not necessarily treat at this time. Last social work note from November 19 reviewed.
[2022-11-24] MEDS: ACETAMINOPHEN 325 MG TABLET PO PRN ×2 (10:59→17:42)
[2022-11-24] MEDS: OLANZapine ODT 5 MG TABLET TL SCH (22:34)
--- NOTE | 2022-11-25 08:43 | ED Physician Documentation ---
ED Addendum - Addendum Addendum: 11/25/22 Patient signed out to me at shift change Remains boarding under ED status ned iting placement and safe disposition. I evaluated the patient at the bedside. She is sleeping and did not awaken to voice so did not want to wake her. Could not locate her nurse to see if there are any needs today but I did review the nursing note from this morning which states the following: "No acute events overnight. Pt oriented to self. Pt able to sleep and appears to be in no acute physical distress. Lujan care performed. Pt remains stable. Will continue to monitor."
[2022-11-25] MEDS: ACETAMINOPHEN 325 MG TABLET PO PRN (09:03)
[2022-11-25] MEDS: DOCUSATE SODIUM 100 MG CAPSULE PO SCH (09:03)
[2022-11-25] MEDS: MULTIVITAMIN W/MINERALS TABLET PO SCH (09:03)
[2022-11-25] MEDS: MIN OIL/DIMETHICON/COCONUT OIL 92 GM TUBE TOP SCH ×2 (09:04→22:14)
[2022-11-25] MEDS: MICONAZOLE CREAM (EXTRA-THICK) 92 GM TUBE TOP SCH ×2 (09:04→22:13)
[2022-11-25] MEDS: ZINC OXIDE 20% OINT 30 GM TUBE TOP PRN (09:04)
[2022-11-25] MEDS: NYSTATIN 500000 UNITS/5 ML UDC PO SCH ×4 (09:05→22:13)
[2022-11-25] MEDS: OLANZapine ODT 5 MG TABLET TL SCH (22:13)
[2022-11-26] MEDS: QUEtiapine 25 MG TABLET PO PRN ×2 (01:06→08:41)
[2022-11-26] MEDS: ACETAMINOPHEN 325 MG TABLET PO PRN ×3 (03:49→18:53)
[2022-11-26] MEDS: NYSTATIN 500000 UNITS/5 ML UDC PO SCH ×2 (08:41→13:43)
[2022-11-26] MEDS: MULTIVITAMIN W/MINERALS TABLET PO SCH (08:41)
[2022-11-26] MEDS: MIN OIL/DIMETHICON/COCONUT OIL 92 GM TUBE TOP SCH ×2 (08:42→21:35)
[2022-11-26] MEDS: MICONAZOLE CREAM (EXTRA-THICK) 92 GM TUBE TOP SCH ×2 (08:42→21:35)
[2022-11-26] MEDS: DOCUSATE SODIUM 100 MG CAPSULE PO SCH (08:42)
--- NOTE | 2022-11-27 17:54 | ED Physician Documentation ---
ED Addendum - Addendum Addendum: 11/27/22 17:53 Patient continues to board pending appropriate social work placement. Nursing staff have no acute concerns. Her vital signs have been stable without fever over the last several days. She is eating 30 to 60% of meals typically out of bed.
--- NOTE | 2022-11-27 18:52 | ED Physician Documentation ---
ED Addendum - Addendum Addendum: 11/27/22 18:51 The patient is signed out to me at change of shift, continuing to board on the medical floor under ED care and continuing to pend long-term care placement with assistance from social work. Patient had no acute issues during the day. She took all her medications and ate her meals as ordered. Nurses reported no issues. The patient will be signed out to the oncoming emergency physician, continuing to pend placement.
[2022-11-27] MEDS: ACETAMINOPHEN 325 MG TABLET PO PRN (20:27)
[2022-11-27] MEDS: OLANZapine ODT 5 MG TABLET TL SCH ×2 (20:27→21:57)
[2022-11-27] MEDS: QUEtiapine 25 MG TABLET PO PRN (22:21)
[2022-11-28] MEDS: ACETAMINOPHEN 325 MG TABLET PO PRN ×3 (08:33→21:39)
[2022-11-28] MEDS: MULTIVITAMIN W/MINERALS TABLET PO SCH ×2 (08:33→17:32)
[2022-11-28] MEDS: DOCUSATE SODIUM 100 MG CAPSULE PO SCH ×2 (08:33→17:32)
[2022-11-28] MEDS: MICONAZOLE CREAM (EXTRA-THICK) 92 GM TUBE TOP SCH ×4 (12:10→21:39)
[2022-11-28] MEDS: MIN OIL/DIMETHICON/COCONUT OIL 92 GM TUBE TOP SCH ×4 (12:10→21:39)
--- NOTE | 2022-11-28 14:37 | ED Physician Documentation ---
ED Addendum - Addendum Addendum: Patient remains boarding under ED status. Awaiting placement by social work. No acute events overnight.
[2022-11-28] MEDS: QUEtiapine 25 MG TABLET PO PRN (14:56)
[2022-11-28] MEDS: OLANZapine ODT 5 MG TABLET TL SCH (21:39)
--- NOTE | 2022-11-29 07:30 | ED Physician Documentation ---
ED Addendum - Addendum Addendum: 11/29/22 07:30 Patient seen and examined at the bedside. Nurse was in attendance and had no specific needs. Vital signs reviewed, somewhat wide pulse pressure with low diastolics, other vital signs unremarkable. Most recent social work note from 4 days ago was reviewed. Patient continues to be demented and awaiting placement.
[2022-11-29] MEDS: MULTIVITAMIN W/MINERALS TABLET PO SCH (08:06)
[2022-11-29] MEDS: DOCUSATE SODIUM 100 MG CAPSULE PO SCH (08:07)
[2022-11-29] MEDS: MICONAZOLE CREAM (EXTRA-THICK) 92 GM TUBE TOP SCH ×2 (08:07→19:56)
[2022-11-29] MEDS: MIN OIL/DIMETHICON/COCONUT OIL 92 GM TUBE TOP SCH ×2 (08:07→19:56)
[2022-11-29] MEDS: ACETAMINOPHEN 325 MG TABLET PO PRN ×3 (08:48→19:57)
[2022-11-29] MEDS: OLANZapine ODT 5 MG TABLET TL SCH (20:00)
[2022-11-30] MEDS: DOCUSATE SODIUM 100 MG CAPSULE PO SCH (08:30)
[2022-11-30] MEDS: MULTIVITAMIN W/MINERALS TABLET PO SCH (08:30)
[2022-11-30] MEDS: MIN OIL/DIMETHICON/COCONUT OIL 92 GM TUBE TOP SCH ×2 (08:31→20:30)
[2022-11-30] MEDS: MICONAZOLE CREAM (EXTRA-THICK) 92 GM TUBE TOP SCH ×2 (08:31→20:30)
[2022-11-30] MEDS: QUEtiapine 25 MG TABLET PO PRN (12:01)
--- NOTE | 2022-11-30 15:51 | ED Physician Documentation ---
ED Addendum - Addendum Addendum: 11/30/22 15:50 The patient was signed out to me at change of shift, continuing to pend long- term care facility placement and boarding under the ED until then. The patient was without issues throughout the day. She took all of her medications as directed and ate her food. Nursing staff did not report any issues. The patient is signed out to the oncoming emergency Physician at change of shift, continuing to pend long-term care facility placement.
[2022-11-30] MEDS: OLANZapine ODT 5 MG TABLET TL SCH (20:30)
[2022-12-01] MEDS: ZINC OXIDE 20% OINT 30 GM TUBE TOP PRN (06:29)
[2022-12-01] MEDS: QUEtiapine 25 MG TABLET PO PRN (07:43)
[2022-12-01] MEDS: DOCUSATE SODIUM 100 MG CAPSULE PO SCH (07:43)
[2022-12-01] MEDS: MULTIVITAMIN W/MINERALS TABLET PO SCH (07:43)
[2022-12-01] MEDS: ACETAMINOPHEN 325 MG TABLET PO PRN (07:43)
[2022-12-01] MEDS: MICONAZOLE CREAM (EXTRA-THICK) 92 GM TUBE TOP SCH ×2 (07:44→20:55)
[2022-12-01] MEDS: MIN OIL/DIMETHICON/COCONUT OIL 92 GM TUBE TOP SCH ×2 (07:44→20:55)
--- NOTE | 2022-12-01 18:22 | ED Physician Documentation ---
ED Addendum - Addendum Addendum: 12/01/22 18:21 The patient was signed out to me at change of shift, continuing to pend long- term care placement, and continuing to be followed by social work to that end. She is boarding Under the care of of the emergency department and floor nurses on the floor. The patient had no issues throughout the day. She ate her food and took her medications. No acute issues were raised by nursing staff. The patient is signed out to the oncoming emergency physician, continuing to pend final disposition.
[2022-12-01] MEDS: OLANZapine ODT 5 MG TABLET TL SCH (20:56)
[2022-12-02] MEDS: ZINC OXIDE 20% OINT 30 GM TUBE TOP PRN (06:21)
[2022-12-02] MEDS: MULTIVITAMIN W/MINERALS TABLET PO SCH (07:35)
[2022-12-02] MEDS: DOCUSATE SODIUM 100 MG CAPSULE PO SCH (07:35)
[2022-12-02] MEDS: ACETAMINOPHEN 325 MG TABLET PO PRN (07:35)
[2022-12-02] MEDS: QUEtiapine 25 MG TABLET PO PRN ×2 (07:35→21:25)
[2022-12-02] MEDS: MIN OIL/DIMETHICON/COCONUT OIL 92 GM TUBE TOP SCH ×2 (07:38→21:26)
[2022-12-02] MEDS: MICONAZOLE CREAM (EXTRA-THICK) 92 GM TUBE TOP SCH ×2 (07:38→21:26)
--- NOTE | 2022-12-02 08:53 | ED Physician Documentation ---
ED Addendum - Addendum Addendum: 12/02/22 08:52 Patient evaluated independently at bedside at approximately 0730 hrs. Resting comfortably. Requesting water which is brought to her by tech/nursing staff. Nursing staff reports that she has had some increased episodes of agitation Such as yelling or hitting her table for attention however she has been responding to her prescribed Seroquel and Zyprexa. We will continue to monitor. 12/02/22 08:52
[2022-12-02] MEDS: OLANZapine ODT 5 MG TABLET TL SCH (21:25)
[2022-12-03] MEDS: ZINC OXIDE 20% OINT 30 GM TUBE TOP PRN (06:40)
[2022-12-03] MEDS: DOCUSATE SODIUM 100 MG CAPSULE PO SCH (07:47)
[2022-12-03] MEDS: ACETAMINOPHEN 325 MG TABLET PO PRN ×2 (07:47→12:34)
[2022-12-03] MEDS: MULTIVITAMIN W/MINERALS TABLET PO SCH (07:47)
[2022-12-03] MEDS: MIN OIL/DIMETHICON/COCONUT OIL 92 GM TUBE TOP SCH ×2 (07:49→21:41)
[2022-12-03] MEDS: MICONAZOLE CREAM (EXTRA-THICK) 92 GM TUBE TOP SCH ×2 (07:49→21:41)
--- NOTE | 2022-12-03 18:26 | ED Physician Documentation ---
ED Addendum - Addendum Addendum: 12/03/22 18:24 No reports of problems or changes needed on morning report. The patient did have breathlessness with some calling out last evening and did get a as needed Seroquel dose which helped with her calming and apparently slept the night. Patient remained stable and still awaiting placement. We can track and see if this is a regular occurrence to need extra dosing and if so could add it as a regular dosing. For now we will just watch. 12/03/22 18:25 12/03/22 18:26
[2022-12-03] MEDS: OLANZapine ODT 5 MG TABLET TL SCH (21:41)
[2022-12-04] MEDS: DOCUSATE SODIUM 100 MG CAPSULE PO SCH (09:46)
[2022-12-04] MEDS: MIN OIL/DIMETHICON/COCONUT OIL 92 GM TUBE TOP SCH ×2 (09:46→21:10)
[2022-12-04] MEDS: MICONAZOLE CREAM (EXTRA-THICK) 92 GM TUBE TOP SCH ×2 (09:46→21:10)
[2022-12-04] MEDS: MULTIVITAMIN W/MINERALS TABLET PO SCH (09:46)
--- NOTE | 2022-12-04 12:39 | ED Physician Documentation ---
ED Addendum - Addendum Addendum: 12/04/22 12:38 New issues reported on nursing rounds this morning. Notes reveal no problems. Continue with current treatment plans and diet.
[2022-12-04] MEDS: OLANZapine ODT 5 MG TABLET TL SCH (21:10)
[2022-12-04] MEDS: QUEtiapine 25 MG TABLET PO PRN (23:11)
[2022-12-05] MEDS: MIN OIL/DIMETHICON/COCONUT OIL 92 GM TUBE TOP SCH ×2 (09:31→20:57)
[2022-12-05] MEDS: MICONAZOLE CREAM (EXTRA-THICK) 92 GM TUBE TOP SCH ×2 (09:31→20:57)
[2022-12-05] MEDS: MULTIVITAMIN W/MINERALS TABLET PO SCH (09:32)
[2022-12-05] MEDS: ACETAMINOPHEN 325 MG TABLET PO PRN (09:32)
[2022-12-05] MEDS: DOCUSATE SODIUM 100 MG CAPSULE PO SCH (09:32)
--- NOTE | 2022-12-05 09:42 | ED Physician Documentation ---
ED Addendum - Addendum Addendum: 12/05/22 09:40 I went to the room to see the patient. Her nurse was in the room as well. The patient had woken up briefly before and was just starting to eat breakfast. She was comfortable and did not have any complaints. She is hard of hearing so does do some lip reading. Baseline minimal conversation. She states she is doing okay. I asked if there was any things we needed to change and she said no. No reports of problems from nursing staff notes. Continue current treatments.
[2022-12-05] MEDS: OLANZapine ODT 5 MG TABLET TL SCH (20:57)
[2022-12-06] MEDS: MICONAZOLE CREAM (EXTRA-THICK) 92 GM TUBE TOP SCH ×2 (08:38→21:30)
[2022-12-06] MEDS: DOCUSATE SODIUM 100 MG CAPSULE PO SCH (08:38)
[2022-12-06] MEDS: MIN OIL/DIMETHICON/COCONUT OIL 92 GM TUBE TOP SCH ×2 (08:38→21:30)
[2022-12-06] MEDS: MULTIVITAMIN W/MINERALS TABLET PO SCH (08:38)
--- NOTE | 2022-12-06 12:54 | ED Physician Documentation ---
ED Addendum - Addendum Addendum: 12/06/22 12:53 Patient seen and examined at bedside. She is sleeping comfortably. The nurses have no specific changes needed or necessities. They do note she does not eat much of her meals, but she is snacking well.
[2022-12-06] MEDS: ACETAMINOPHEN 325 MG TABLET PO PRN (21:29)
[2022-12-06] MEDS: OLANZapine ODT 5 MG TABLET TL SCH (21:29)
[2022-12-07] MEDS: MICONAZOLE CREAM (EXTRA-THICK) 92 GM TUBE TOP SCH ×2 (08:01→20:11)
[2022-12-07] MEDS: MULTIVITAMIN W/MINERALS TABLET PO SCH (08:01)
[2022-12-07] MEDS: MIN OIL/DIMETHICON/COCONUT OIL 92 GM TUBE TOP SCH ×2 (08:01→20:11)
[2022-12-07] MEDS: DOCUSATE SODIUM 100 MG CAPSULE PO SCH (08:02)
[2022-12-07] MEDS: ACETAMINOPHEN 325 MG TABLET PO PRN ×2 (14:08→20:12)
--- NOTE | 2022-12-07 17:03 | ED Physician Documentation ---
ED Addendum - Addendum Addendum: 12/07/22 17:03 Seen and examined at bedside. She was sitting up eating dinner, chicken dinner. She just started it so I am not sure how much she had had. She has no complaints. The nurse was not immediately available to see if he or she had any specific concerns
[2022-12-07] MEDS: OLANZapine ODT 5 MG TABLET TL SCH (20:11)
--- NOTE | 2022-12-08 03:23 | ED Physician Documentation ---
ED Addendum - Addendum Addendum: 12/08/22 03:22 The time nursing called and discussed with me that the patient has had now an indwelling Lujan catheter for just over a month and commonly these are changed monthly to reduce the chance of infection. Nursing asked if we wanted to do this. This seems reasonable but does not necessarily need to be now during the night. I placed an order for Lujan catheter insertion/change for this coming morning after breakfast.
[2022-12-08] MEDS: ACETAMINOPHEN 325 MG TABLET PO PRN (10:44)
[2022-12-08] MEDS: MULTIVITAMIN W/MINERALS TABLET PO SCH (10:44)
[2022-12-08] MEDS: MICONAZOLE CREAM (EXTRA-THICK) 92 GM TUBE TOP SCH ×2 (10:45→22:29)
[2022-12-08] MEDS: MIN OIL/DIMETHICON/COCONUT OIL 92 GM TUBE TOP SCH ×2 (10:45→22:29)
[2022-12-08] MEDS: DOCUSATE SODIUM 100 MG CAPSULE PO SCH (10:45)
[2022-12-08] MEDS: QUEtiapine 25 MG TABLET PO PRN (10:45)
--- NOTE | 2022-12-08 12:08 | ED Physician Documentation ---
ED Addendum - Addendum Addendum: Patient remains boarding Under ED status awaiting placement. No acute events overnight. Lujan catheter was changed this afternoon.
[2022-12-08] MEDS: OLANZapine ODT 5 MG TABLET TL SCH (22:28)
[2022-12-09] MEDS: MICONAZOLE CREAM (EXTRA-THICK) 92 GM TUBE TOP SCH ×2 (09:22→20:57)
[2022-12-09] MEDS: MULTIVITAMIN W/MINERALS TABLET PO SCH (09:23)
[2022-12-09] MEDS: MIN OIL/DIMETHICON/COCONUT OIL 92 GM TUBE TOP SCH ×2 (09:23→20:57)
[2022-12-09] MEDS: DOCUSATE SODIUM 100 MG CAPSULE PO SCH (09:23)
--- NOTE | 2022-12-09 14:24 | ED Physician Documentation ---
ED Addendum - Addendum Addendum: Patient remains boarding. No acute events overnight. Reviewed notes from social work yesterday. They continue to work on placement.
[2022-12-09] MEDS: QUEtiapine 25 MG TABLET PO PRN (20:56)
[2022-12-09] MEDS: OLANZapine ODT 5 MG TABLET TL SCH (20:57)
[2022-12-10] MEDS: MIN OIL/DIMETHICON/COCONUT OIL 92 GM TUBE TOP SCH ×2 (09:03→23:00)
[2022-12-10] MEDS: MULTIVITAMIN W/MINERALS TABLET PO SCH (09:03)
[2022-12-10] MEDS: DOCUSATE SODIUM 100 MG CAPSULE PO SCH (09:03)
[2022-12-10] MEDS: MICONAZOLE CREAM (EXTRA-THICK) 92 GM TUBE TOP SCH ×2 (09:03→23:00)
--- NOTE | 2022-12-10 12:13 | ED Physician Documentation ---
ED Addendum - Addendum Addendum: 12/10/22 12:13 No reports of problems on morning rounds. Nursing notes did not suggest any problems. Maintain current treatment and plan.
[2022-12-10] MEDS: OLANZapine ODT 5 MG TABLET TL SCH (22:59)
[2022-12-11] MEDS: DOCUSATE SODIUM 100 MG CAPSULE PO SCH (09:11)
[2022-12-11] MEDS: QUEtiapine 25 MG TABLET PO PRN ×2 (09:11→22:52)
[2022-12-11] MEDS: MULTIVITAMIN W/MINERALS TABLET PO SCH (09:11)
--- NOTE | 2022-12-11 10:31 | ED Physician Documentation ---
ED Addendum - Addendum Addendum: 12/11/22 10:30 Examined the patient in her room this morning. She was resting comfortably. Did not have any complaints as I asked her. Le benedict clear. No reports of problems from nursing and hospital tech. Continue current treatments.
[2022-12-11] MEDS: MICONAZOLE CREAM (EXTRA-THICK) 92 GM TUBE TOP SCH ×2 (17:31→21:48)
[2022-12-11] MEDS: MIN OIL/DIMETHICON/COCONUT OIL 92 GM TUBE TOP SCH ×2 (17:31→21:48)
[2022-12-11] MEDS: OLANZapine ODT 5 MG TABLET TL SCH (21:48)
[2022-12-12] MEDS: MIN OIL/DIMETHICON/COCONUT OIL 92 GM TUBE TOP SCH ×2 (09:16→20:10)
[2022-12-12] MEDS: MULTIVITAMIN W/MINERALS TABLET PO SCH (09:16)
[2022-12-12] MEDS: MICONAZOLE CREAM (EXTRA-THICK) 92 GM TUBE TOP SCH ×2 (09:16→20:09)
[2022-12-12] MEDS: DOCUSATE SODIUM 100 MG CAPSULE PO SCH (09:16)
[2022-12-12] MEDS: QUEtiapine 25 MG TABLET PO PRN ×2 (09:16→20:10)
--- NOTE | 2022-12-12 15:43 | ED Physician Documentation ---
ED Addendum - Addendum Addendum: 12/12/22 15:43 No concerns on nursing notes; morning nursing sup rounds. Continue curent treatments.
[2022-12-12] MEDS: OLANZapine ODT 5 MG TABLET TL SCH (20:10)
[2022-12-13] MEDS: MULTIVITAMIN W/MINERALS TABLET PO SCH (08:59)
[2022-12-13] MEDS: DOCUSATE SODIUM 100 MG CAPSULE PO SCH (08:59)
[2022-12-13] MEDS: MIN OIL/DIMETHICON/COCONUT OIL 92 GM TUBE TOP SCH ×2 (08:59→21:51)
[2022-12-13] MEDS: MICONAZOLE CREAM (EXTRA-THICK) 92 GM TUBE TOP SCH ×2 (08:59→21:51)
[2022-12-13] MEDS: QUEtiapine 25 MG TABLET PO PRN (11:53)
[2022-12-13] MEDS: ACETAMINOPHEN 325 MG TABLET PO PRN (11:53)
--- NOTE | 2022-12-13 17:20 | ED Physician Documentation ---
ED Addendum - Addendum Addendum: 12/13/22 17:18 No changes to Kimies care overnight. The patient continues to have a Lujan catheter draining clear urine. When I approached her this evening she is just finishing a full dinner. Looks like she is able to eat her plate easily and she is sitting watching television. She does not appear to be interactive with what she is seeing.
[2022-12-13] MEDS: OLANZapine ODT 5 MG TABLET TL SCH (21:51)
[2022-12-14] MEDS: MICONAZOLE CREAM (EXTRA-THICK) 92 GM TUBE TOP SCH ×2 (09:34→21:02)
[2022-12-14] MEDS: MIN OIL/DIMETHICON/COCONUT OIL 92 GM TUBE TOP SCH ×2 (09:34→21:02)
[2022-12-14] MEDS: DOCUSATE SODIUM 100 MG CAPSULE PO SCH (09:34)
[2022-12-14] MEDS: MULTIVITAMIN W/MINERALS TABLET PO SCH (09:34)
[2022-12-14] MEDS: QUEtiapine 25 MG TABLET PO PRN (14:47)
[2022-12-14] MEDS: OLANZapine ODT 5 MG TABLET TL SCH (21:02)
--- NOTE | 2022-12-15 07:24 | ED Physician Documentation ---
ED Addendum - Addendum Addendum: 12/15/22 07:23 She was sleeping when I rounded on her this morning and she was not awoken for exam. Most recent social work note from 6 days ago reviewed. Nursing notes and vital signs reviewed.
[2022-12-15] MEDS: MIN OIL/DIMETHICON/COCONUT OIL 92 GM TUBE TOP SCH ×2 (09:27→20:56)
[2022-12-15] MEDS: MULTIVITAMIN W/MINERALS TABLET PO SCH (09:27)
[2022-12-15] MEDS: MICONAZOLE CREAM (EXTRA-THICK) 92 GM TUBE TOP SCH ×2 (09:27→20:55)
[2022-12-15] MEDS: DOCUSATE SODIUM 100 MG CAPSULE PO SCH (09:27)
[2022-12-15] MEDS: OLANZapine ODT 5 MG TABLET TL SCH (20:56)
[2022-12-16] MEDS: MULTIVITAMIN W/MINERALS TABLET PO SCH (09:53)
[2022-12-16] MEDS: DOCUSATE SODIUM 100 MG CAPSULE PO SCH (09:53)
[2022-12-16] MEDS: MIN OIL/DIMETHICON/COCONUT OIL 92 GM TUBE TOP SCH ×2 (09:53→20:01)
[2022-12-16] MEDS: MICONAZOLE CREAM (EXTRA-THICK) 92 GM TUBE TOP SCH ×2 (09:53→20:01)
--- NOTE | 2022-12-16 12:54 | ED Physician Documentation ---
ED Addendum - Addendum Addendum: 12/16/22 12:54 Nursing notes from overnight and into this morning were reviewed. Discussion at morning rounds with nursing aircraft maintenance supervisor did not reveal any new problems. At this point the patient is still pending placement. Continue with current medications diet and treatments.
[2022-12-16] MEDS: QUEtiapine 25 MG TABLET PO PRN (20:01)
[2022-12-16] MEDS: OLANZapine ODT 5 MG TABLET TL SCH (20:01)
[2022-12-17] MEDS: DOCUSATE SODIUM 100 MG CAPSULE PO SCH (08:10)
[2022-12-17] MEDS: MULTIVITAMIN W/MINERALS TABLET PO SCH (08:10)
[2022-12-17] MEDS: MIN OIL/DIMETHICON/COCONUT OIL 92 GM TUBE TOP SCH ×2 (08:11→22:20)
[2022-12-17] MEDS: MICONAZOLE CREAM (EXTRA-THICK) 92 GM TUBE TOP SCH ×2 (08:11→22:20)
--- NOTE | 2022-12-17 08:42 | ED Physician Documentation ---
ED Addendum - Addendum Addendum: 12/17/22 08:41 No acute events overnight, patient continues to await placement. No further changes today.
[2022-12-17] MEDS: QUEtiapine 25 MG TABLET PO PRN (22:18)
[2022-12-17] MEDS: OLANZapine ODT 5 MG TABLET TL SCH (22:18)
[2022-12-18] MEDS: MIN OIL/DIMETHICON/COCONUT OIL 92 GM TUBE TOP SCH ×2 (09:21→19:56)
[2022-12-18] MEDS: DOCUSATE SODIUM 100 MG CAPSULE PO SCH (09:21)
[2022-12-18] MEDS: MICONAZOLE CREAM (EXTRA-THICK) 92 GM TUBE TOP SCH ×2 (09:21→19:56)
[2022-12-18] MEDS: MULTIVITAMIN W/MINERALS TABLET PO SCH (09:21)
--- NOTE | 2022-12-18 13:00 | ED Physician Documentation ---
ED Addendum - Addendum Addendum: 12/18/22 12:59 The patient was signed out to me at change of shift, continuing to board under emergency department care on the floor and continuing to pend long-term care placement. The patient had no issues throughout the day. She took all of her medications as prescribed and ate all her food. She had no complaints or vital sign abnormalities. She continues to be followed by social work with the ultimate intended end of being placed in a long-term care facility. She is signed out to the oncoming emergency physician pending the same.
[2022-12-18] MEDS: QUEtiapine 25 MG TABLET PO PRN (20:00)
[2022-12-18] MEDS: OLANZapine ODT 5 MG TABLET TL SCH (21:50)
[2022-12-19] MEDS: MULTIVITAMIN W/MINERALS TABLET PO SCH (07:45)
[2022-12-19] MEDS: DOCUSATE SODIUM 100 MG CAPSULE PO SCH (07:46)
[2022-12-19] MEDS: MIN OIL/DIMETHICON/COCONUT OIL 92 GM TUBE TOP SCH ×2 (07:47→20:45)
[2022-12-19] MEDS: MICONAZOLE CREAM (EXTRA-THICK) 92 GM TUBE TOP SCH ×2 (07:47→20:45)
[2022-12-19] MEDS: QUEtiapine 25 MG TABLET PO PRN (12:28)
--- NOTE | 2022-12-19 14:59 | ED Physician Documentation ---
ED Addendum - Addendum Addendum: 12/19/22 14:59 The patient was signed out to me at change of shift, continuing to pend long- term care placement and continuing to board under emergency department care on the floor. Patient had no issues during the day. She took all her medications and ate her meals. Nursing staff reported no issues. Patient will be signed out to the oncoming emergency physician, continuing to pend final disposition.
[2022-12-19] MEDS: OLANZapine ODT 5 MG TABLET TL SCH (20:45)
[2022-12-20] MEDS: ZINC OXIDE 20% OINT 30 GM TUBE TOP PRN (07:08)
[2022-12-20] MEDS: DOCUSATE SODIUM 100 MG CAPSULE PO SCH (07:36)
[2022-12-20] MEDS: MULTIVITAMIN W/MINERALS TABLET PO SCH (07:36)
[2022-12-20] MEDS: MICONAZOLE CREAM (EXTRA-THICK) 92 GM TUBE TOP SCH ×2 (07:37→20:50)
[2022-12-20] MEDS: MIN OIL/DIMETHICON/COCONUT OIL 92 GM TUBE TOP SCH ×2 (07:42→20:50)
--- NOTE | 2022-12-20 12:08 | ED Physician Documentation ---
ED Addendum - Addendum Addendum: 12/20/22 12:08 She was sitting up and watching a documentary about severe weather events. She seemed comfortable and voiced no complaints.
--- NOTE | 2022-12-20 15:05 | ED Physician Documentation ---
ED Addendum - Addendum Addendum: 12/20/22 15:05 RN notified me that she has a small pressure ulcer. It was examined. There is 1 to 1-1/2 cm stage II noninfected pressure ulcer to the right lateral gluteus. RN is taking care of this and I will put in for a wound consult as well.
[2022-12-20] MEDS: OLANZapine ODT 5 MG TABLET TL SCH (20:49)
[2022-12-21] MEDS: DOCUSATE SODIUM 100 MG CAPSULE PO SCH (09:12)
[2022-12-21] MEDS: MICONAZOLE CREAM (EXTRA-THICK) 92 GM TUBE TOP SCH ×2 (09:12→20:37)
[2022-12-21] MEDS: MULTIVITAMIN W/MINERALS TABLET PO SCH (09:12)
[2022-12-21] MEDS: MIN OIL/DIMETHICON/COCONUT OIL 92 GM TUBE TOP SCH ×2 (09:12→20:36)
--- NOTE | 2022-12-21 12:19 | ED Physician Documentation ---
ED Addendum - Addendum Addendum: 12/21/22 12:17 No noted problems on nursing notes, however no noted wound care notes yet today. Plan to continue same treatments. No social work today and no advancement on placement likely through the holiday weekend. 12/21/22 12:18
[2022-12-21] MEDS: OLANZapine ODT 5 MG TABLET TL SCH (20:37)
[2022-12-22] MEDS: MULTIVITAMIN W/MINERALS TABLET PO SCH (08:38)
[2022-12-22] MEDS: DOCUSATE SODIUM 100 MG CAPSULE PO SCH (08:38)
[2022-12-22] MEDS: MICONAZOLE CREAM (EXTRA-THICK) 92 GM TUBE TOP SCH ×2 (15:00→21:32)
[2022-12-22] MEDS: MIN OIL/DIMETHICON/COCONUT OIL 92 GM TUBE TOP SCH ×2 (15:00→21:32)
[2022-12-22] MEDS: QUEtiapine 25 MG TABLET PO PRN (17:36)
--- NOTE | 2022-12-22 21:08 | ED Physician Documentation ---
ED Addendum - Addendum Addendum: 12/22/22 21:08 No noted changes needed by nursing staff.
[2022-12-22] MEDS: OLANZapine ODT 5 MG TABLET TL SCH (21:32)
--- NOTE | 2022-12-23 08:17 | ED Physician Documentation ---
ED Addendum - Addendum Addendum: 12/23/22 08:15 I met personally with the patient this morning. She was eating breakfast at the time. She says she was doing okay. I asked if she needed anything changed necessarily. She said she was okay. Review of nursing notes did not show any obvious needs. Comment about wound care from showed no worsening. Will assess wound care notes. 12/23/22 08:17
[2022-12-23] MEDS: MIN OIL/DIMETHICON/COCONUT OIL 92 GM TUBE TOP SCH ×2 (09:00→21:00)
[2022-12-23] MEDS: MULTIVITAMIN W/MINERALS TABLET PO SCH (09:00)
[2022-12-23] MEDS: DOCUSATE SODIUM 100 MG CAPSULE PO SCH (09:00)
[2022-12-23] MEDS: MICONAZOLE CREAM (EXTRA-THICK) 92 GM TUBE TOP SCH ×2 (09:00→21:00)
[2022-12-23] MEDS: OLANZapine ODT 5 MG TABLET TL SCH (21:00)
[2022-12-24] MEDS: MULTIVITAMIN W/MINERALS TABLET PO SCH (08:50)
[2022-12-24] MEDS: MICONAZOLE CREAM (EXTRA-THICK) 92 GM TUBE TOP SCH ×2 (08:51→23:23)
[2022-12-24] MEDS: MIN OIL/DIMETHICON/COCONUT OIL 92 GM TUBE TOP SCH ×2 (08:51→23:25)
[2022-12-24] MEDS: DOCUSATE SODIUM 100 MG CAPSULE PO SCH (08:51)
[2022-12-24] MEDS: polyethylene glycoL 3350 17 GM PACKET PO SCH (09:48)
--- NOTE | 2022-12-24 15:39 | ED Physician Documentation ---
ED Addendum - Addendum Addendum: 12/24/22 15:39 Looks like the wound care nurse saw her yesterday and took photos, we are pending a formal wound care consultation for her right gluteal wound. Otherwise no specific concerns from nursing staff or looking at the notes.
[2022-12-24] MEDS: OLANZapine ODT 5 MG TABLET TL SCH (23:22)
[2022-12-24] MEDS: ZINC OXIDE 20% OINT 30 GM TUBE TOP PRN (23:22)
[2022-12-25] MEDS: MIN OIL/DIMETHICON/COCONUT OIL 92 GM TUBE TOP SCH ×2 (09:54→20:43)
[2022-12-25] MEDS: QUEtiapine 25 MG TABLET PO PRN (09:54)
[2022-12-25] MEDS: MULTIVITAMIN W/MINERALS TABLET PO SCH (09:54)
[2022-12-25] MEDS: MICONAZOLE CREAM (EXTRA-THICK) 92 GM TUBE TOP SCH ×2 (09:54→20:37)
[2022-12-25] MEDS: ACETAMINOPHEN 325 MG TABLET PO PRN (09:54)
[2022-12-25] MEDS: DOCUSATE SODIUM 100 MG CAPSULE PO SCH (09:54)
[2022-12-25] MEDS: polyethylene glycoL 3350 17 GM PACKET PO SCH (09:55)
--- NOTE | 2022-12-25 15:26 | ED Physician Documentation ---
ED Addendum - Addendum Addendum: 12/25/22 15:26 Patient was signed out to me at change of shift, continuing to pend long-term care placement, and continuing to board on the floor under ED care until the time of disposition. Patient is continue to be followed by social work to this end. The patient did not have any issues throughout the day. She took all her medications and ate her meals. She is signed out to the oncoming emergency physician at change of shift pending this.
[2022-12-25] MEDS: OLANZapine ODT 5 MG TABLET TL SCH (20:37)
[2022-12-26] MEDS: QUEtiapine 25 MG TABLET PO PRN (00:18)
[2022-12-26] MEDS: MIN OIL/DIMETHICON/COCONUT OIL 92 GM TUBE TOP SCH ×2 (10:03→20:08)
[2022-12-26] MEDS: DOCUSATE SODIUM 100 MG CAPSULE PO SCH (10:03)
[2022-12-26] MEDS: polyethylene glycoL 3350 17 GM PACKET PO SCH (10:03)
[2022-12-26] MEDS: MULTIVITAMIN W/MINERALS TABLET PO SCH (10:03)
[2022-12-26] MEDS: MICONAZOLE CREAM (EXTRA-THICK) 92 GM TUBE TOP SCH ×2 (10:04→20:09)
--- NOTE | 2022-12-26 15:03 | ED Physician Documentation ---
ED Addendum - Addendum Addendum: 12/26/22 15:02 No reported problems on nursing notes. They do state she was taken out by wheelchair into the Courtyard and is a nice day. No comments on wound care today as yet.
[2022-12-26] MEDS: OLANZapine ODT 5 MG TABLET TL SCH (20:08)
[2022-12-26] MEDS: ACETAMINOPHEN 325 MG TABLET PO PRN (21:20)
--- NOTE | 2022-12-27 10:13 | ED Physician Documentation ---
ED Addendum - Addendum Addendum: 12/27/22 10:12 Stopped in on patient briefly this morning. She appeared comfortable. No complaints at the time. We will evaluate on nursing notes but no problems identified on notes from last night.
[2022-12-27] MEDS: MULTIVITAMIN W/MINERALS TABLET PO SCH (11:19)
[2022-12-27] MEDS: MICONAZOLE CREAM (EXTRA-THICK) 92 GM TUBE TOP SCH ×2 (11:19→20:24)
[2022-12-27] MEDS: DOCUSATE SODIUM 100 MG CAPSULE PO SCH (11:19)
[2022-12-27] MEDS: MIN OIL/DIMETHICON/COCONUT OIL 92 GM TUBE TOP SCH ×2 (11:20→20:24)
[2022-12-27] MEDS: polyethylene glycoL 3350 17 GM PACKET PO SCH (11:20)
[2022-12-27] MEDS: OLANZapine ODT 5 MG TABLET TL SCH (20:24)
[2022-12-27] MEDS: QUEtiapine 25 MG TABLET PO PRN (23:46)
--- NOTE | 2022-12-28 07:11 | ED Physician Documentation ---
ED Addendum - Addendum Addendum: 12/28/22 07:11 Seen and examined at bedside. Sleeping comfortably and not aroused for exam. Nurses queried at shift change. Currently no mechanism in place to ensure Lujan replacement, wrote an order for Lujan replacement monthly.
[2022-12-28] MEDS: MICONAZOLE CREAM (EXTRA-THICK) 92 GM TUBE TOP SCH ×2 (12:59→22:13)
[2022-12-28] MEDS: polyethylene glycoL 3350 17 GM PACKET PO SCH (12:59)
[2022-12-28] MEDS: MIN OIL/DIMETHICON/COCONUT OIL 92 GM TUBE TOP SCH ×2 (12:59→22:13)
[2022-12-28] MEDS: DOCUSATE SODIUM 100 MG CAPSULE PO SCH (12:59)
[2022-12-28] MEDS: MULTIVITAMIN W/MINERALS TABLET PO SCH (13:04)
[2022-12-28] MEDS: OLANZapine ODT 5 MG TABLET TL SCH (22:13)
[2022-12-29] MEDS: MULTIVITAMIN W/MINERALS TABLET PO SCH (10:16)
[2022-12-29] MEDS: MICONAZOLE CREAM (EXTRA-THICK) 92 GM TUBE TOP SCH ×2 (10:17→20:55)
[2022-12-29] MEDS: polyethylene glycoL 3350 17 GM PACKET PO SCH (10:17)
[2022-12-29] MEDS: DOCUSATE SODIUM 100 MG CAPSULE PO SCH (10:17)
[2022-12-29] MEDS: MIN OIL/DIMETHICON/COCONUT OIL 92 GM TUBE TOP SCH ×2 (13:51→20:55)
--- NOTE | 2022-12-29 18:16 | ED Physician Documentation ---
ED Addendum - Addendum Addendum: 12/29/22 18:15 Patient was signed out to me at change of shift, continuing to pend Long-term care placement and continuing to board under ED care on the floor. The patient had no issues throughout the day. She took all her meals and her medications as ordered. Nursing staff reported no issues. Patient signed out to the oncoming emergency physician continuing to pend final disposition.
[2022-12-29] MEDS: OLANZapine ODT 5 MG TABLET TL SCH (21:01)
[2022-12-30] MEDS: DOCUSATE SODIUM 100 MG CAPSULE PO SCH (08:39)
[2022-12-30] MEDS: polyethylene glycoL 3350 17 GM PACKET PO SCH (08:39)
[2022-12-30] MEDS: MULTIVITAMIN W/MINERALS TABLET PO SCH (08:39)
[2022-12-30] MEDS: MIN OIL/DIMETHICON/COCONUT OIL 92 GM TUBE TOP SCH ×2 (08:40→18:14)
[2022-12-30] MEDS: MICONAZOLE CREAM (EXTRA-THICK) 92 GM TUBE TOP SCH ×2 (08:40→18:14)
--- NOTE | 2022-12-30 11:32 | ED Physician Documentation ---
ED Addendum - Addendum Addendum: 12/30/22 11:29 No noted problems on morning rounds. No change in therapy noted. Home place was to have visited the patient yesterday to assess for excepting her. No notes as yet today on the outcome of that. 12/30/22 11:31
[2022-12-30] MEDS: OLANZapine ODT 5 MG TABLET TL SCH (20:51)
[2022-12-31] MEDS: polyethylene glycoL 3350 17 GM PACKET PO SCH (08:09)
[2022-12-31] MEDS: DOCUSATE SODIUM 100 MG CAPSULE PO SCH (08:09)
[2022-12-31] MEDS: MULTIVITAMIN W/MINERALS TABLET PO SCH (08:09)
[2022-12-31] MEDS: MIN OIL/DIMETHICON/COCONUT OIL 92 GM TUBE TOP SCH ×3 (13:58→20:51)
[2022-12-31] MEDS: MICONAZOLE CREAM (EXTRA-THICK) 92 GM TUBE TOP SCH ×2 (13:58→20:52)
--- NOTE | 2022-12-31 16:06 | ED Physician Documentation ---
ED Addendum - Addendum Addendum: 12/31/22 16:06 Patient seen and examined at bedside. She was sleeping comfortably and not aroused for exam. No acute events noted. Wound care notes show improvement.
[2022-12-31] MEDS: OLANZapine ODT 5 MG TABLET TL SCH (20:52)
[2022-12-31] MEDS: QUEtiapine 25 MG TABLET PO PRN (22:46)
[2023-01-01] MEDS: MULTIVITAMIN W/MINERALS TABLET PO SCH (11:25)
[2023-01-01] MEDS: DOCUSATE SODIUM 100 MG CAPSULE PO SCH (11:25)
[2023-01-01] MEDS: MICONAZOLE CREAM (EXTRA-THICK) 92 GM TUBE TOP SCH ×2 (11:26→22:34)
[2023-01-01] MEDS: polyethylene glycoL 3350 17 GM PACKET PO SCH (11:26)
[2023-01-01] MEDS: MIN OIL/DIMETHICON/COCONUT OIL 92 GM TUBE TOP SCH ×2 (11:26→22:35)
--- NOTE | 2023-01-01 12:17 | ED Physician Documentation ---
ED Addendum - Addendum Addendum: 01/01/23 12:16 Patient was eating lunch when I was in the room. She had no specific c omplaints. Recent nursing notes, and vital signs reviewed. No acute events.
[2023-01-01] MEDS: OLANZapine ODT 5 MG TABLET TL SCH (22:34)
[2023-01-01] MEDS: ZINC OXIDE 20% OINT 30 GM TUBE TOP PRN (22:35)
[2023-01-01 23:08] LABS: BILIRUBIN,URINE NEGATIVE (NEGATIVE); GLUCOSE, URINE (UA) NEGATIVE (NEGATIVE); KETONES,URINE (UA) NEGATIVE (NEGATIVE); LEUKOCYTE ESTERASE, URINE NEGATIVE (NEGATIVE); NITRITE,URINE POSITIVE (NEGATIVE); OCCULT BLOOD,URINE SMALL (NEGATIVE); PH,URINE 6.5 PH (5.0-7.5); PROTEIN,URINE NEGATIVE (NEGATIVE); UROBILINOGEN,URINE 0.2 (NORMAL) E.U./dL (NORMAL)
[2023-01-01 23:18] LABS: BACTERIA,URINE Moderate /HPF (None Seen); CLARITY,URINE HAZY (CLEAR); RBC,URINE 0-5 /HPF (0-5); SQUAMOUS EPITHELIAL CELL,UR RARE Squamous (<= Few)
[2023-01-02] MEDS: MULTIVITAMIN W/MINERALS TABLET PO SCH (08:46)
[2023-01-02] MEDS: DOCUSATE SODIUM 100 MG CAPSULE PO SCH (08:46)
[2023-01-02] MEDS: MIN OIL/DIMETHICON/COCONUT OIL 92 GM TUBE TOP SCH ×2 (08:46→20:28)
[2023-01-02] MEDS: polyethylene glycoL 3350 17 GM PACKET PO SCH (08:47)
[2023-01-02] MEDS: MICONAZOLE CREAM (EXTRA-THICK) 92 GM TUBE TOP SCH ×2 (08:47→20:29)
--- NOTE | 2023-01-02 12:02 | ED Physician Documentation ---
ED Addendum - Addendum Addendum: 01/02/23 12:02 Patient in bed, somnolent but easily arousable. We had to replace her Lujan last night because it had gotten clogged and that the nurses requested a urinalysis which does show pyuria. There is no fever, and at this point she has no suprapubic tenderness nor flank tenderness. The urine in the bag is relatively clear, so I think this is asymptomatic bacteriuria related to longstanding Lujan placement and would not treat without some other sign or symptom of UTI. Nurses notes and vital signs reviewed. Still awaiting placement.
[2023-01-02] MEDS: OLANZapine ODT 5 MG TABLET TL SCH (20:29)
[2023-01-02] MEDS: QUEtiapine 25 MG TABLET PO PRN (23:17)
[2023-01-03] MEDS: MULTIVITAMIN W/MINERALS TABLET PO SCH (09:22)
[2023-01-03] MEDS: DOCUSATE SODIUM 100 MG CAPSULE PO SCH (09:22)
[2023-01-03] MEDS: MICONAZOLE CREAM (EXTRA-THICK) 92 GM TUBE TOP SCH ×2 (09:22→22:25)
[2023-01-03] MEDS: MIN OIL/DIMETHICON/COCONUT OIL 92 GM TUBE TOP SCH ×2 (09:22→22:25)
[2023-01-03] MEDS: polyethylene glycoL 3350 17 GM PACKET PO SCH (09:23)
--- NOTE | 2023-01-03 12:00 | ED Physician Documentation ---
ED Addendum - Addendum Addendum: 01/03/23 12:00 Patient was sleeping, nurse voiced no concerns. Vital signs reviewed. Urine culture from the other day is still pending, but no suprapubic pain reported no fevers so still favor colonization over infection.
[2023-01-03] MEDS: OLANZapine ODT 5 MG TABLET TL SCH (22:25)
[2023-01-04] MEDS: MULTIVITAMIN W/MINERALS TABLET PO SCH (08:41)
[2023-01-04] MEDS: MIN OIL/DIMETHICON/COCONUT OIL 92 GM TUBE TOP SCH ×2 (08:41→20:48)
[2023-01-04] MEDS: DOCUSATE SODIUM 100 MG CAPSULE PO SCH (08:41)
[2023-01-04] MEDS: MICONAZOLE CREAM (EXTRA-THICK) 92 GM TUBE TOP SCH ×2 (08:42→20:48)
[2023-01-04] MEDS: polyethylene glycoL 3350 17 GM PACKET PO SCH (08:42)
--- NOTE | 2023-01-04 18:56 | ED Physician Documentation ---
ED Addendum - Addendum Addendum: 01/04/23 18:55 No changes in Ketty's care today she has a slow decline in her general abilities.
[2023-01-04] MEDS: OLANZapine ODT 5 MG TABLET TL SCH (20:48)
[2023-01-05] MEDS: ZINC OXIDE 20% OINT 30 GM TUBE TOP PRN (00:01)
[2023-01-05] MEDS: QUEtiapine 25 MG TABLET PO PRN ×2 (00:41→21:11)
--- NOTE | 2023-01-05 07:51 | ED Physician Documentation ---
ED Addendum - Addendum Addendum: 01/05/23 07:51 She was sleeping on my morning rounds. Bedside nurse had no concerns or needs. Vital signs and recent nursing notes reviewed.
[2023-01-05] MEDS: MULTIVITAMIN W/MINERALS TABLET PO SCH (08:59)
[2023-01-05] MEDS: DOCUSATE SODIUM 100 MG CAPSULE PO SCH (08:59)
[2023-01-05] MEDS: MICONAZOLE CREAM (EXTRA-THICK) 92 GM TUBE TOP SCH ×2 (09:00→21:11)
[2023-01-05] MEDS: polyethylene glycoL 3350 17 GM PACKET PO SCH (09:00)
[2023-01-05] MEDS: MIN OIL/DIMETHICON/COCONUT OIL 92 GM TUBE TOP SCH ×2 (09:00→21:11)
[2023-01-05] MEDS: OLANZapine ODT 5 MG TABLET TL SCH (21:19)
[2023-01-06] MEDS: MULTIVITAMIN W/MINERALS TABLET PO SCH (08:41)
[2023-01-06] MEDS: MIN OIL/DIMETHICON/COCONUT OIL 92 GM TUBE TOP SCH ×2 (08:41→22:06)
[2023-01-06] MEDS: MICONAZOLE CREAM (EXTRA-THICK) 92 GM TUBE TOP SCH ×2 (08:41→22:06)
[2023-01-06] MEDS: DOCUSATE SODIUM 100 MG CAPSULE PO SCH (08:41)
[2023-01-06] MEDS: polyethylene glycoL 3350 17 GM PACKET PO SCH (08:42)
--- NOTE | 2023-01-06 16:59 | WOUND CARE PROGRESS NOTE ---
Assessment/Plan - Problem List (1) Pressure injury of deep tissue of right buttock Assessment/Plan: Pressure injury of deep tissue of right buttock. Treatment plan incorporates (when appropriate): (1) Correction of etiologic factors, (2) Optimization of the local wound environment to promote healing by cleansing, debriding, managing bacterial balance, and managing moisture balance, (3) Appropriate off-loading, (4) Treatment of infection, (5) Addressing host co-factors/co-morbidities that may affect healing, and (6) Consideration of advanced therapies such as application of cellular and/or tissue products/skin grafting. Status: Size unchanged, but deep tissue injury appears to be resolving. Wound cleansed with NS. Wound dressed with Hydrofera Blue and covered with plain foam bordered dressing. Dressing should stay in place until next visit. Change if becomes saturated or detached. Call [facility] for supplies at ext [phone]. Encourage favorite high protein foods/oral nutritional supplement. Consider formal dietary consult if not previously done. Continue efforts to keep weight off wound. Change positions every 2 hours. Recommend PT consult to improve mobility and optimize offloading such as provision of an appropriate pressure-reducing support surface for her bed (such as an alternating pressure or [id number] mattress overlay) and chair (such as a gel, foam, or static air cushion). Skin health: Cleanse skin promptly as needed soiled disposable underwear. Use a pH-balanced foam no-rinse cleansers such as Remedy Phytoplex, if available. Goals: Disrupt, remove, and prevent reformation of biofilm. Remove necrotic/devitalized tissue Redistribute pressure Improve nutrition Improve mobility Avoid urine/stool exposure Manage co-morbidities Wound closure Recheck 01/13/23 @ 1300. Sooner, prn. - Home Meds/Allergies Allergies Unable to Assess Allergy (Verified 09/23/22 15:05) Home Medications Home Medications Unobtainable [HOME MEDICATIONS UNOBTAINABLE] 09/23/22 [History] Objective Comments/Notes: Vitals on hospital floor (01/06/2023 at 0803): T 36.4C, HR 90, RR 24, BP 163/80. O2 Sat 99% (room air). - Wound Assessment Ulcer #1 is a deep tissue injury of the right sacroiliac joint. It measures 0.4 x 0.5 x 0.1 cm. There is no tunneling, undermining, or sinus tract. There is light serosanguineous discharge drainage noted which has no odor. The wound margin is attached. The wound bed has no epithelialization, no eschar, yes slough, yes red firm granulation tissue. Periwound color has diminishing areas consistent with deep tissue injury. The periwound texture, temperature, and moisture are normal. Exposed structures: Adipose. Subjective - Subjective Patient Reports: Other (No significant interim developments. No progress on obtaining pressure redistribution surfaces. Patient unable to give hx due to dementia.) Procedure - Procedure Note Ulcer #1: A skin/subcutaneous tissue level surgical debridement with a total area of 0.30 cm was performed by James Zuñiga MD. Using a curette, dermis epidermis and subcutaneous tissues were removed along with devitalized tissue: Biofilm, exudate, and slough. Pain control was achieved using lidocaine topical 5%. A timeout was conducted prior to the start of the procedure. A minimal amount of bleeding was controlled with pressure. The pressure was procedure was tolerated well. Postdebridement measurements: 0.5 x 0.6 x 0.2 cm.
--- NOTE | 2023-01-06 17:01 | ED Physician Documentation ---
ED Addendum - Addendum Addendum: 01/06/23 16:57 Nursing reports that Lucy has had decreased interaction with them and is falling asleep easily. They feel she is not herself. She has begun to develop increased decubitus. She has had some cloudy urine and a urinalysis was done several days ago. The patient has a decreased oral intake and a slight elevation in her blood pressure. They have requested we investigate. She has not had laboratory evaluation done since August of this year so we will repeat her laboratory evaluation in the am with a CBC, ER panel and UA. Her most recent U/A grew . 100,000 colonies of polymicrobial organisms consistent with contamination. Her behavior changes could easily be related to recurrent catheter associated infection. 01/06/23 16:58
[2023-01-06] MEDS: OLANZapine ODT 5 MG TABLET TL SCH (22:05)
[2023-01-07 07:22] LABS: BILIRUBIN,URINE NEGATIVE (NEGATIVE); GLUCOSE, URINE (UA) NEGATIVE (NEGATIVE); KETONES,URINE (UA) NEGATIVE (NEGATIVE); LEUKOCYTE ESTERASE, URINE SMALL (NEGATIVE); NITRITE,URINE NEGATIVE (NEGATIVE); OCCULT BLOOD,URINE SMALL (NEGATIVE); PROTEIN,URINE NEGATIVE (NEGATIVE); UROBILINOGEN,URINE 0.2 (NORMAL) E.U./dL (NORMAL)
[2023-01-07 07:24] LABS: CLARITY,URINE SL. CLOUDY (CLEAR)
[2023-01-07 07:36] LABS: BACTERIA,URINE Many /HPF (None Seen); RBC,URINE 0-5 /HPF (0-5); SQUAMOUS EPITHELIAL CELL,UR RARE Squamous (<= Few)
[2023-01-07 07:43] LABS: BASOPHILS % (AUTO) 0.5 %; EOSINOPHILS # (AUTO) 0.3 10^3/uL (0.0-0.7); EOSINOPHILS % (AUTO) 4.7 %; HCT - HEMATOCRIT 34.9 % (37.0-47.0); HGB - HEMOGLOBIN 11.3 g/dL (12.0-16.0); LYMPHOCYTES # (AUTO) 1.1 10^3/uL (1.5-3.5); LYMPHOCYTES % (AUTO) 19.5 %; MEAN CORPUSCULAR HGB CONC 32.4 g/dL (32.0-36.0); MEAN CORPUSCULAR VOLUME 95.6 fL (81.0-99.0); MEAN PLATELET VOLUME 8.2 fL (7.9-10.8); MONOCYTES # (AUTO) 0.5 10^3/uL (0.0-1.0); MONOCYTES % (AUTO) 9.2 %; NEUTROPHILS # (AUTO) 3.6 10^3/uL (1.5-6.6); NEUTROPHILS % (AUTO) 65.7 %; PLT - PLATELET COUNT 171 10^3/uL (130-450); RED BLOOD COUNT 3.65 10^6/uL (4.20-5.40); WHITE BLOOD COUNT 5.5 x10^3/uL (4.8-10.8)
[2023-01-07 07:49] LABS: ALBUMIN/GLOBULIN RATIO 0.6 (1.0-2.2); BILIRUBIN,TOTAL 0.6 mg/dL (0.2-1.0); CALCIUM 8.9 mg/dL (8.5-10.3); CREATININE 0.4 mg/dL (0.4-1.0); POTASSIUM 3.5 mmol/L (3.5-5.0); TOTAL PROTEIN 7.7 g/dL (6.7-8.2)
[2023-01-07] MEDS: MULTIVITAMIN W/MINERALS TABLET PO SCH (08:52)
[2023-01-07] MEDS: MIN OIL/DIMETHICON/COCONUT OIL 92 GM TUBE TOP SCH ×2 (08:52→20:05)
[2023-01-07] MEDS: MICONAZOLE CREAM (EXTRA-THICK) 92 GM TUBE TOP SCH ×2 (08:52→20:06)
[2023-01-07] MEDS: DOCUSATE SODIUM 100 MG CAPSULE PO SCH (08:52)
[2023-01-07] MEDS: polyethylene glycoL 3350 17 GM PACKET PO SCH (08:53)
--- NOTE | 2023-01-07 10:17 | ED Physician Documentation ---
ED Addendum - Addendum Addendum: 01/07/23 10:17 Patient seen and examined at the bedside. Her nurse was concerned that she was "acting unlike herself." Reportedly grabbing at things and more altered than usual. Concerned about more cloudy urine. My partner had ordered labs this morning. These were notable for a CMP showing hypoalbuminemia and elevated BUN. CBC showing modest normocytic anemia with no white count. Urine shows pyuria, but in the lack of report of suprapubic pain or fevers still probably would not treat pending culture. Last culture positive for skin organisms. Patient was sleeping on my evaluation and was not aroused for exam. She appeared comfortable.
[2023-01-07] MEDS: OLANZapine ODT 5 MG TABLET TL SCH (21:15)
[2023-01-08] MEDS: MIN OIL/DIMETHICON/COCONUT OIL 92 GM TUBE TOP SCH ×2 (09:16→20:50)
[2023-01-08] MEDS: MULTIVITAMIN W/MINERALS TABLET PO SCH (09:16)
[2023-01-08] MEDS: DOCUSATE SODIUM 100 MG CAPSULE PO SCH (09:16)
[2023-01-08] MEDS: polyethylene glycoL 3350 17 GM PACKET PO SCH (09:16)
[2023-01-08] MEDS: MICONAZOLE CREAM (EXTRA-THICK) 92 GM TUBE TOP SCH ×2 (09:16→20:49)
--- NOTE | 2023-01-08 11:57 | ED Physician Documentation ---
ED Addendum - Addendum Addendum: 01/08/23 11:57 Seen at bedside. She was sleeping. Vital signs reviewed and unremarkable. Urine culture from yesterday pending.
[2023-01-08] MEDS: QUEtiapine 25 MG TABLET PO PRN (20:50)
[2023-01-08] MEDS: OLANZapine ODT 5 MG TABLET TL SCH (20:56)
--- NOTE | 2023-01-09 09:10 | ED Physician Documentation ---
ED Addendum - Addendum Addendum: 01/09/23 09:07 Patient evaluated independently at bedside, found to be sleeping and otherwise resting comfortably and in no acute distress. Preliminary results from patient's urine culture demonstrate greater than 100,000 gram-positive colony forming units with speciation pending. Previous cultures Will initiate course Keflex pending speciation/susceptibilities.
[2023-01-09] MEDS: polyethylene glycoL 3350 17 GM PACKET PO SCH (09:33)
[2023-01-09] MEDS: cephALEXin 250 MG CAPSULE PO SCH ×4 (09:33→20:32)
[2023-01-09] MEDS: MULTIVITAMIN W/MINERALS TABLET PO SCH (09:33)
[2023-01-09] MEDS: DOCUSATE SODIUM 100 MG CAPSULE PO SCH (09:33)
[2023-01-09] MEDS: MIN OIL/DIMETHICON/COCONUT OIL 92 GM TUBE TOP SCH ×2 (17:06→20:11)
[2023-01-09] MEDS: MICONAZOLE CREAM (EXTRA-THICK) 92 GM TUBE TOP SCH ×2 (17:07→20:11)
[2023-01-09] MEDS: OLANZapine ODT 5 MG TABLET TL SCH (20:32)
[2023-01-10] MEDS: polyethylene glycoL 3350 17 GM PACKET PO SCH (08:07)
[2023-01-10] MEDS: DOCUSATE SODIUM 100 MG CAPSULE PO SCH (08:07)
[2023-01-10] MEDS: MIN OIL/DIMETHICON/COCONUT OIL 92 GM TUBE TOP SCH ×2 (08:07→20:08)
[2023-01-10] MEDS: MULTIVITAMIN W/MINERALS TABLET PO SCH (08:07)
[2023-01-10] MEDS: cephALEXin 250 MG CAPSULE PO SCH ×4 (08:07→20:39)
[2023-01-10] MEDS: MICONAZOLE CREAM (EXTRA-THICK) 92 GM TUBE TOP SCH ×2 (08:07→20:09)
[2023-01-10] MEDS: QUEtiapine 25 MG TABLET PO PRN (10:32)
[2023-01-10] MEDS: ACETAMINOPHEN 325 MG TABLET PO PRN (10:32)
--- NOTE | 2023-01-10 17:31 | ED Physician Documentation ---
ED Addendum - Addendum Addendum: 01/10/23 17:30 No obvious problems noted in nursing notes. Social work states the patient may have movement on placement to [facility] and may occur as soon as the which is in a few days. We will watch for follow-ups. Otherwise to maintain current treatment plan.
[2023-01-10] MEDS: OLANZapine ODT 5 MG TABLET TL SCH (20:39)
[2023-01-11] MEDS: polyethylene glycoL 3350 17 GM PACKET PO SCH (08:09)
[2023-01-11] MEDS: DOCUSATE SODIUM 100 MG CAPSULE PO SCH (08:10)
[2023-01-11] MEDS: MIN OIL/DIMETHICON/COCONUT OIL 92 GM TUBE TOP SCH ×2 (08:10→20:30)
[2023-01-11] MEDS: cephALEXin 250 MG CAPSULE PO SCH ×4 (08:10→20:30)
[2023-01-11] MEDS: MICONAZOLE CREAM (EXTRA-THICK) 92 GM TUBE TOP SCH ×2 (08:10→20:30)
[2023-01-11] MEDS: MULTIVITAMIN W/MINERALS TABLET PO SCH (08:10)
--- NOTE | 2023-01-11 14:29 | ED Physician Documentation ---
ED Addendum - Addendum Addendum: 01/11/23 14:27 She was awake and alert sitting in bed when I stopped and to evaluate. She does not have any particular complaints. I checked with nursing staff of the day and no requests or needs were identified. The patient apparently has a interview or evaluation on the which is in 2 days and at that point presumably will be able to be evaluated or placed. Apparently [facility] is looking at the patient and may be able to accept her.
[2023-01-11] MEDS: OLANZapine ODT 5 MG TABLET TL SCH (20:30)
[2023-01-12] MEDS: ZINC OXIDE 20% OINT 30 GM TUBE TOP PRN (07:12)
[2023-01-12] MEDS: cephALEXin 250 MG CAPSULE PO SCH ×4 (10:11→21:01)
[2023-01-12] MEDS: polyethylene glycoL 3350 17 GM PACKET PO SCH (10:11)
[2023-01-12] MEDS: MULTIVITAMIN W/MINERALS TABLET PO SCH (10:12)
[2023-01-12] MEDS: DOCUSATE SODIUM 100 MG CAPSULE PO SCH (10:12)
[2023-01-12] MEDS: MIN OIL/DIMETHICON/COCONUT OIL 92 GM TUBE TOP SCH ×2 (10:12→21:01)
[2023-01-12] MEDS: MICONAZOLE CREAM (EXTRA-THICK) 92 GM TUBE TOP SCH ×2 (13:38→21:02)
--- NOTE | 2023-01-12 15:11 | ED Physician Documentation ---
ED Addendum - Addendum Addendum: 01/12/23 15:10 Routine nursing notes with regular diet and small bowel movement and no other obvious concerns. The patient seems resting comfortably. She seemed attentive. Social work note from a few days ago suggested possible placement at [facility]. Evaluation is occurring tomorrow I believe. We will see the results of that.
[2023-01-12] MEDS: OLANZapine ODT 5 MG TABLET TL SCH (21:01)
[2023-01-13] MEDS: polyethylene glycoL 3350 17 GM PACKET PO SCH (10:17)
[2023-01-13] MEDS: cephALEXin 250 MG CAPSULE PO SCH ×4 (10:17→20:48)
[2023-01-13] MEDS: MULTIVITAMIN W/MINERALS TABLET PO SCH (10:17)
[2023-01-13] MEDS: DOCUSATE SODIUM 100 MG CAPSULE PO SCH (10:17)
[2023-01-13] MEDS: MIN OIL/DIMETHICON/COCONUT OIL 92 GM TUBE TOP SCH ×2 (10:17→20:48)
[2023-01-13] MEDS: MICONAZOLE CREAM (EXTRA-THICK) 92 GM TUBE TOP SCH ×2 (10:18→20:48)
--- NOTE | 2023-01-13 13:07 | ED Physician Documentation ---
ED Addendum - Addendum Addendum: 01/13/23 13:06 The patient was awake and reaches for my hand. No apparent distress. No obvious needs based on nursing notes. Reportedly having a court hearing or such today that should provide for guardianship. No social work notes as yet for the day. I presume is a work in progress.
[2023-01-13] MEDS: OLANZapine ODT 5 MG TABLET TL SCH (20:48)
[2023-01-14] MEDS: MULTIVITAMIN W/MINERALS TABLET PO SCH (12:39)
[2023-01-14] MEDS: MICONAZOLE CREAM (EXTRA-THICK) 92 GM TUBE TOP SCH ×2 (12:40→20:39)
[2023-01-14] MEDS: cephALEXin 250 MG CAPSULE PO SCH (12:40)
[2023-01-14] MEDS: DOCUSATE SODIUM 100 MG CAPSULE PO SCH (12:40)
[2023-01-14] MEDS: MIN OIL/DIMETHICON/COCONUT OIL 92 GM TUBE TOP SCH ×2 (12:40→20:39)
[2023-01-14] MEDS: polyethylene glycoL 3350 17 GM PACKET PO SCH (12:40)
--- NOTE | 2023-01-14 14:58 | ED Physician Documentation ---
ED Addendum - Addendum Addendum: 01/14/23 14:57 Patient was signed out to me at change of shift, continuing to pend Long-term care placement and continuing to be followed by social work. I was asked to review the patient's med list in anticipation of placement at a long-term care facility in the next couple of weeks. I did review the med list and did not feel any changes need to be made at this time. The list has been passed on to the patient's primary care physician to officially write up. Patient otherwise had no issues throughout the day. She is signed out to the oncoming emergency physician, continuing to pend final disposition.
[2023-01-14] MEDS: QUEtiapine 25 MG TABLET PO PRN (20:37)
[2023-01-14] MEDS: OLANZapine ODT 5 MG TABLET TL SCH (20:39)
[2023-01-14] MEDS: ACETAMINOPHEN 325 MG TABLET PO PRN (22:35)
[2023-01-15] MEDS: MIN OIL/DIMETHICON/COCONUT OIL 92 GM TUBE TOP SCH ×2 (10:24→20:21)
[2023-01-15] MEDS: MICONAZOLE CREAM (EXTRA-THICK) 92 GM TUBE TOP SCH ×2 (10:24→20:21)
[2023-01-15] MEDS: polyethylene glycoL 3350 17 GM PACKET PO SCH (10:24)
[2023-01-15] MEDS: DOCUSATE SODIUM 100 MG CAPSULE PO SCH (10:25)
[2023-01-15] MEDS: MULTIVITAMIN W/MINERALS TABLET PO SCH (10:25)
[2023-01-15] MEDS: OLANZapine ODT 5 MG TABLET TL SCH (20:21)
[2023-01-16] MEDS: MULTIVITAMIN W/MINERALS TABLET PO SCH ×2 (08:59→09:02)
[2023-01-16] MEDS: DOCUSATE SODIUM 100 MG CAPSULE PO SCH (08:59)
[2023-01-16] MEDS: polyethylene glycoL 3350 17 GM PACKET PO SCH (09:03)
[2023-01-16] MEDS: MIN OIL/DIMETHICON/COCONUT OIL 92 GM TUBE TOP SCH ×2 (09:17→20:54)
[2023-01-16] MEDS: MICONAZOLE CREAM (EXTRA-THICK) 92 GM TUBE TOP SCH ×2 (09:18→20:53)
--- NOTE | 2023-01-16 17:29 | ED Physician Documentation ---
ED Addendum - Addendum Addendum: 01/16/23 17:27 NO apparent movement on placement today; the court paperwork per Social WOrk note is the last step could be few days to couple weeks. No change in treatment indicated. 01/16/23 17:28
[2023-01-16] MEDS: OLANZapine ODT 5 MG TABLET TL SCH (20:53)
[2023-01-17] MEDS: DOCUSATE SODIUM 100 MG CAPSULE PO SCH (08:35)
[2023-01-17] MEDS: ZINC OXIDE 20% OINT 30 GM TUBE TOP PRN (08:36)
[2023-01-17] MEDS: MIN OIL/DIMETHICON/COCONUT OIL 92 GM TUBE TOP SCH ×2 (08:36→21:30)
[2023-01-17] MEDS: MICONAZOLE CREAM (EXTRA-THICK) 92 GM TUBE TOP SCH ×2 (08:36→21:30)
[2023-01-17] MEDS: polyethylene glycoL 3350 17 GM PACKET PO SCH (10:25)
--- NOTE | 2023-01-17 11:11 | ED Physician Documentation ---
ED Addendum - Addendum Addendum: 01/17/23 11:10 No obvious problems from nursing notes and morning rounds. Social work states she did receive the court papers this morning. They need to be reviewed by her court appointed guardian which would likely be Thursday. Than her primary care needs to just finish writing orders and [facility] would be able to take her. So hopefully disposition early this coming week (2 to 3 days).
[2023-01-17] MEDS: OLANZapine ODT 5 MG TABLET TL SCH (21:30)
[2023-01-18] MEDS: DOCUSATE SODIUM 100 MG CAPSULE PO SCH (08:46)
[2023-01-18] MEDS: polyethylene glycoL 3350 17 GM PACKET PO SCH (08:46)
[2023-01-18] MEDS: MICONAZOLE CREAM (EXTRA-THICK) 92 GM TUBE TOP SCH ×2 (08:47→20:52)
[2023-01-18] MEDS: MIN OIL/DIMETHICON/COCONUT OIL 92 GM TUBE TOP SCH ×2 (08:47→20:52)
[2023-01-18] MEDS: MULTIVITAMIN W/MINERALS TABLET PO SCH (08:47)
[2023-01-18] MEDS: ZINC OXIDE 20% OINT 30 GM TUBE TOP PRN ×2 (08:47→23:42)
--- NOTE | 2023-01-18 15:56 | ED Physician Documentation ---
ED Addendum - Addendum Addendum: 01/18/23 15:56 Patient was sleeping and not aroused for exam. Recent nurses notes, vital signs, and social work notes reviewed. No acute events. Still awaiting placement.
[2023-01-18] MEDS: OLANZapine ODT 5 MG TABLET TL SCH (20:52)
[2023-01-19] MEDS: MICONAZOLE CREAM (EXTRA-THICK) 92 GM TUBE TOP SCH ×2 (08:58→20:49)
[2023-01-19] MEDS: DOCUSATE SODIUM 100 MG CAPSULE PO SCH (08:58)
[2023-01-19] MEDS: MULTIVITAMIN W/MINERALS TABLET PO SCH (08:58)
[2023-01-19] MEDS: polyethylene glycoL 3350 17 GM PACKET PO SCH (08:58)
[2023-01-19] MEDS: MIN OIL/DIMETHICON/COCONUT OIL 92 GM TUBE TOP SCH ×2 (08:58→20:49)
--- NOTE | 2023-01-19 18:47 | ED Physician Documentation ---
ED Addendum - Addendum Addendum: 01/19/23 18:46 The patient was signed out to me at change of shift, continuing to be followed by social work and to pend long-term care facility placement. The patient had no issues throughout the day. She took her medications and her meals and nursing staff reported no issues. The patient continues to be followed by social work with no new developments in her case at this time. She is signed out to the oncoming emergency physician, continuing to pend final disposition.
[2023-01-19] MEDS: OLANZapine ODT 5 MG TABLET TL SCH (20:49)
[2023-01-20] MEDS: MULTIVITAMIN W/MINERALS TABLET PO SCH (09:45)
[2023-01-20] MEDS: DOCUSATE SODIUM 100 MG CAPSULE PO SCH (09:45)
[2023-01-20] MEDS: MICONAZOLE CREAM (EXTRA-THICK) 92 GM TUBE TOP SCH ×2 (09:45→21:22)
[2023-01-20] MEDS: MIN OIL/DIMETHICON/COCONUT OIL 92 GM TUBE TOP SCH ×2 (09:45→21:23)
[2023-01-20] MEDS: polyethylene glycoL 3350 17 GM PACKET PO SCH (09:45)
--- NOTE | 2023-01-20 18:30 | ED Physician Documentation ---
ED Addendum - Addendum Addendum: 01/20/23 18:29 No significant changes to Mony today. She has had some loose stool recently and she has been given a lot of MiraLAX and stool softener and they will back off on that. 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
[2023-01-20] MEDS: OLANZapine ODT 5 MG TABLET TL SCH (21:23)
[2023-01-21] MEDS: polyethylene glycoL 3350 17 GM PACKET PO SCH (10:29)
[2023-01-21] MEDS: DOCUSATE SODIUM 100 MG CAPSULE PO SCH (10:29)
[2023-01-21] MEDS: MIN OIL/DIMETHICON/COCONUT OIL 92 GM TUBE TOP SCH ×2 (10:44→20:22)
[2023-01-21] MEDS: MULTIVITAMIN W/MINERALS TABLET PO SCH (10:44)
[2023-01-21] MEDS: MICONAZOLE CREAM (EXTRA-THICK) 92 GM TUBE TOP SCH ×2 (10:45→20:22)
[2023-01-21] MEDS: ZINC OXIDE 20% OINT 30 GM TUBE TOP PRN (10:45)
[2023-01-21] MEDS: OLANZapine ODT 5 MG TABLET TL SCH (21:38)
--- NOTE | 2023-01-21 22:17 | ED Physician Documentation ---
ED Addendum - Addendum Addendum: 01/21/23 22:16 Routine nursing care per notes. SOcial Work note updates that the patient now needs to have bank accounts unblocked for paying [employer]. This could take up to few weeks.
[2023-01-22] MEDS: MULTIVITAMIN W/MINERALS TABLET PO SCH (09:50)
[2023-01-22] MEDS: DOCUSATE SODIUM 100 MG CAPSULE PO SCH (09:50)
[2023-01-22] MEDS: MIN OIL/DIMETHICON/COCONUT OIL 92 GM TUBE TOP SCH ×2 (13:01→21:45)
[2023-01-22] MEDS: MICONAZOLE CREAM (EXTRA-THICK) 92 GM TUBE TOP SCH ×2 (13:01→21:45)
[2023-01-22] MEDS: polyethylene glycoL 3350 17 GM PACKET PO SCH (13:01)
--- NOTE | 2023-01-22 13:09 | ED Physician Documentation ---
ED Addendum - Addendum Addendum: 01/22/23 13:08 No particular change in patient's status today. Continue present treatments.
[2023-01-22] MEDS: OLANZapine ODT 5 MG TABLET TL SCH (21:45)
[2023-01-22] MEDS: QUEtiapine 25 MG TABLET PO PRN (23:50)
[2023-01-23] MEDS: DOCUSATE SODIUM 100 MG CAPSULE PO SCH (12:00)
[2023-01-23] MEDS: MULTIVITAMIN W/MINERALS TABLET PO SCH (12:00)
[2023-01-23] MEDS: MICONAZOLE CREAM (EXTRA-THICK) 92 GM TUBE TOP SCH ×2 (13:29→22:40)
[2023-01-23] MEDS: MIN OIL/DIMETHICON/COCONUT OIL 92 GM TUBE TOP SCH ×2 (13:29→22:40)
[2023-01-23] MEDS: polyethylene glycoL 3350 17 GM PACKET PO SCH (13:30)
--- NOTE | 2023-01-23 14:42 | ED Physician Documentation ---
ED Addendum - Addendum Addendum: 01/23/23 14:42 The patient appears comfortable. She was first somewhat sleeping on my entering the room but she roused and said she was hungry. She had some snacks on her table. Her nurse today, Eileen, said she was doing all right and had slept much of the morning.
[2023-01-23] MEDS: OLANZapine ODT 5 MG TABLET TL SCH (22:40)
[2023-01-24] MEDS: MULTIVITAMIN W/MINERALS TABLET PO SCH (09:05)
[2023-01-24] MEDS: polyethylene glycoL 3350 17 GM PACKET PO SCH (09:05)
[2023-01-24] MEDS: DOCUSATE SODIUM 100 MG CAPSULE PO SCH (09:05)
[2023-01-24] MEDS: MICONAZOLE CREAM (EXTRA-THICK) 92 GM TUBE TOP SCH ×2 (13:37→21:14)
[2023-01-24] MEDS: MIN OIL/DIMETHICON/COCONUT OIL 92 GM TUBE TOP SCH ×2 (13:37→21:14)
--- NOTE | 2023-01-24 19:05 | ED Physician Documentation ---
ED Addendum - Addendum Addendum: 01/24/23 19:05 No changes in Rajeev's condition sitting up drinking water in her room today
[2023-01-24] MEDS: OLANZapine ODT 5 MG TABLET TL SCH (21:14)
[2023-01-25] MEDS: MULTIVITAMIN W/MINERALS TABLET PO SCH (09:25)
[2023-01-25] MEDS: DOCUSATE SODIUM 100 MG CAPSULE PO SCH (09:25)
[2023-01-25] MEDS: polyethylene glycoL 3350 17 GM PACKET PO SCH (09:26)
[2023-01-25] MEDS: MICONAZOLE CREAM (EXTRA-THICK) 92 GM TUBE TOP SCH ×2 (09:27→21:54)
[2023-01-25] MEDS: MIN OIL/DIMETHICON/COCONUT OIL 92 GM TUBE TOP SCH ×2 (09:27→21:55)
--- NOTE | 2023-01-25 17:46 | ED Physician Documentation ---
ED Addendum - Addendum Addendum: 01/25/23 17:45 The patient was signed out to me at change of shift by off going emergency physician, continuing to be followed by social work and continuing to pend final disposition to long-term care facility. Patient had no issues during the day. She took all her medications as directed and nursing staff reported no issues. She is signed out to the oncoming emergency physician, continuing to pend final disposition.
[2023-01-25] MEDS: OLANZapine ODT 5 MG TABLET TL SCH (21:55)
[2023-01-26] MEDS: ZINC OXIDE 20% OINT 30 GM TUBE TOP PRN ×3 (00:03→09:01)
[2023-01-26] MEDS: polyethylene glycoL 3350 17 GM PACKET PO SCH (09:02)
[2023-01-26] MEDS: MULTIVITAMIN W/MINERALS TABLET PO SCH (09:02)
[2023-01-26] MEDS: MIN OIL/DIMETHICON/COCONUT OIL 92 GM TUBE TOP SCH ×2 (09:02→20:27)
[2023-01-26] MEDS: MICONAZOLE CREAM (EXTRA-THICK) 92 GM TUBE TOP SCH ×2 (09:02→20:27)
[2023-01-26] MEDS: DOCUSATE SODIUM 100 MG CAPSULE PO SCH (09:02)
--- NOTE | 2023-01-26 14:31 | ED Physician Documentation ---
ED Addendum - Addendum Addendum: 01/26/23 14:30 She was sleeping on rounds today and not aroused. Recent nurses notes and vital signs reviewed. No apparent acute events.
[2023-01-26] MEDS: OLANZapine ODT 5 MG TABLET TL SCH (20:27)
[2023-01-27] MEDS: MULTIVITAMIN W/MINERALS TABLET PO SCH (09:00)
[2023-01-27] MEDS: DOCUSATE SODIUM 100 MG CAPSULE PO SCH (09:00)
[2023-01-27] MEDS: MICONAZOLE CREAM (EXTRA-THICK) 92 GM TUBE TOP SCH ×2 (11:00→20:53)
[2023-01-27] MEDS: MIN OIL/DIMETHICON/COCONUT OIL 92 GM TUBE TOP SCH ×2 (11:00→20:54)
[2023-01-27] MEDS: polyethylene glycoL 3350 17 GM PACKET PO SCH (11:00)
--- NOTE | 2023-01-27 11:45 | ED Physician Documentation ---
ED Addendum - Addendum Addendum: 01/27/23 11:43 The patient was awake and interactive. She states she was hungry. And nurse was going to get her a snack. She did not have any complaints herself. Nursing staff today reported that her urine had looked a little cloudy. The patient did not have any fevers or complaints. The catheter has been changed yesterday per routine. I discussed with the nurse that this may be some sediment just stirred up. We typically would not do cultures on the urines unless some symptoms to suggest active infection. Nursing staff also reported that there had been some slight redness develop on her left butt cheek. They did take a picture and I reviewed it. There is some mild redness but no erosion through the skin. It is being cared for per protocol for wound care. We will keep an eye on it.
[2023-01-27] MEDS: OLANZapine ODT 5 MG TABLET TL SCH (20:54)
--- NOTE | 2023-01-28 07:39 | ED Physician Documentation ---
ED Addendum - Addendum Addendum: 01/28/23 07:39 Patient evaluated at approximately 0730 hrs. Resting comfortably and in no acute distress. Discussed care with nursing staff. No acute events overnight. We will continue to monitor.
[2023-01-28] MEDS: MULTIVITAMIN W/MINERALS TABLET PO SCH (10:49)
[2023-01-28] MEDS: DOCUSATE SODIUM 100 MG CAPSULE PO SCH (10:49)
[2023-01-28] MEDS: polyethylene glycoL 3350 17 GM PACKET PO SCH (10:50)
[2023-01-28] MEDS: MICONAZOLE CREAM (EXTRA-THICK) 92 GM TUBE TOP SCH ×2 (10:50→21:37)
[2023-01-28] MEDS: MIN OIL/DIMETHICON/COCONUT OIL 92 GM TUBE TOP SCH ×2 (10:50→21:37)
[2023-01-28] MEDS: ZINC OXIDE 20% OINT 30 GM TUBE TOP PRN (18:57)
[2023-01-28] MEDS: QUEtiapine 25 MG TABLET PO PRN (21:37)
[2023-01-28] MEDS: OLANZapine ODT 5 MG TABLET TL SCH (21:37)
--- NOTE | 2023-01-29 08:15 | ED Physician Documentation ---
ED Addendum - Addendum Addendum: 01/29/23 08:14 Patient was evaluated at the bedside. She was sleeping. Breakfast tray was next to her. Did not awaken her. Vital signs this morning appear stable. Nursing notes from overnight also reviewed. Unable to locate patient's RN to discuss if there are any further needs at this time.
[2023-01-29] MEDS: polyethylene glycoL 3350 17 GM PACKET PO SCH (09:31)
[2023-01-29] MEDS: DOCUSATE SODIUM 100 MG CAPSULE PO SCH (09:32)
[2023-01-29] MEDS: ZINC OXIDE 20% OINT 30 GM TUBE TOP PRN (09:32)
[2023-01-29] MEDS: MULTIVITAMIN W/MINERALS TABLET PO SCH (09:32)
[2023-01-29] MEDS: MIN OIL/DIMETHICON/COCONUT OIL 92 GM TUBE TOP SCH ×2 (09:32→20:15)
[2023-01-29] MEDS: MICONAZOLE CREAM (EXTRA-THICK) 92 GM TUBE TOP SCH ×2 (09:33→20:15)
[2023-01-29] MEDS: QUEtiapine 25 MG TABLET PO PRN (13:22)
[2023-01-29] MEDS: OLANZapine ODT 5 MG TABLET TL SCH (20:14)
[2023-01-30] MEDS: MULTIVITAMIN W/MINERALS TABLET PO SCH (10:50)
[2023-01-30] MEDS: polyethylene glycoL 3350 17 GM PACKET PO SCH (10:51)
[2023-01-30] MEDS: MICONAZOLE CREAM (EXTRA-THICK) 92 GM TUBE TOP SCH ×2 (10:51→20:45)
[2023-01-30] MEDS: MIN OIL/DIMETHICON/COCONUT OIL 92 GM TUBE TOP SCH ×2 (10:51→20:45)
[2023-01-30] MEDS: DOCUSATE SODIUM 100 MG CAPSULE PO SCH (10:51)
--- NOTE | 2023-01-30 17:14 | ED Physician Documentation ---
ED Addendum - Addendum Addendum: No acute events overnight. Patient has been accepted to [facility]. Dr. Granados has graciously offered to fill out orders for [facility] as well as the patient's POLST.
[2023-01-30] MEDS: OLANZapine ODT 5 MG TABLET TL SCH (20:44)
[2023-01-31] MEDS: MICONAZOLE CREAM (EXTRA-THICK) 92 GM TUBE TOP SCH ×2 (09:31→20:56)
[2023-01-31] MEDS: DOCUSATE SODIUM 100 MG CAPSULE PO SCH (09:31)
[2023-01-31] MEDS: MULTIVITAMIN W/MINERALS TABLET PO SCH (09:31)
[2023-01-31] MEDS: MIN OIL/DIMETHICON/COCONUT OIL 92 GM TUBE TOP SCH ×2 (09:31→20:55)
[2023-01-31] MEDS: polyethylene glycoL 3350 17 GM PACKET PO SCH (09:32)
--- NOTE | 2023-01-31 16:02 | ED Physician Documentation ---
ED Addendum - Addendum Addendum: 01/31/23 16:00 Ismael is awaiting placement and it appears we may have placement available for her in 2 days time. I went to speak to her today and she is in her usual state of fogginess. She repeatedly repetitively wants to look at my name tag and repetitively ask for food. She doesn't seem to capture all of the information in her surroundings.
[2023-01-31] MEDS: OLANZapine ODT 5 MG TABLET TL SCH (20:55)
[2023-02-01] MEDS: MULTIVITAMIN W/MINERALS TABLET PO SCH (10:13)
[2023-02-01] MEDS: DOCUSATE SODIUM 100 MG CAPSULE PO SCH (10:13)
[2023-02-01] MEDS: MIN OIL/DIMETHICON/COCONUT OIL 92 GM TUBE TOP SCH ×2 (10:14→21:11)
[2023-02-01] MEDS: MICONAZOLE CREAM (EXTRA-THICK) 92 GM TUBE TOP SCH ×2 (10:14→21:11)
[2023-02-01] MEDS: polyethylene glycoL 3350 17 GM PACKET PO SCH (10:14)
--- NOTE | 2023-02-01 14:38 | ED Physician Documentation ---
ED Addendum - Addendum Addendum: 02/01/23 14:37 The patient was signed out to me at change of shift, continuing to pend final disposition after an extended stay in the hospital. He is followed by social work with the goal of long-term care facility placement. The patient had no issues today and nurses reported no complaints. She took all of her medications as directed and ate all her meals. She will continue to be followed by social work with the goal of finding a long-term care facility for residence. She is signed out to the oncoming emergency physician, continuing to pend this.
[2023-02-01] MEDS: OLANZapine ODT 5 MG TABLET TL SCH (21:12)
[2023-02-02] MEDS: polyethylene glycoL 3350 17 GM PACKET PO SCH (09:02)
[2023-02-02] MEDS: DOCUSATE SODIUM 100 MG CAPSULE PO SCH (09:02)
[2023-02-02] MEDS: MICONAZOLE CREAM (EXTRA-THICK) 92 GM TUBE TOP SCH (09:02)
[2023-02-02] MEDS: MIN OIL/DIMETHICON/COCONUT OIL 92 GM TUBE TOP SCH (09:02)
[2023-02-02] MEDS: MULTIVITAMIN W/MINERALS TABLET PO SCH (09:02)
--- NOTE | 2023-02-02 09:38 | ED Physician Documentation ---
ED Addendum - Addendum Addendum: 02/02/23 09:37 The patient was signed out to me at change of shift, continuing to pend long- term care placement and continuing to have social work involvement in the case. I was contacted by Venita, our psychologist social, who stated that the patient had been accepted at [facility] and was to be transferred this morning. The patient was in stable condition and had her wound care appointment prior to leaving. I have provided instructions for [facility] and the patient's primary care physician has provided med list and all specifications for the patient's care while at [facility]. The usual indications for return of been discussed. Final impression 1. Dementia Disposition: Transfer to [facility] for long-term care in stable condition.
[2023-02-02 10:01] VITALS: BP 143/62
== END 2023-02-02 11:30 | disposition home or self-care (01) ==
LOC: EDUNIT# → EEVIPCON 14:54 → ED 14:54 → MS2 09-24 20:50 → ED 02-02 11:30
DX: F03.C0 Unspecified dementia, severe, without behavioral disturbance, psychotic disturbance, mood disturbance, and anxiety (principal); I10 Essential (primary) hypertension; E11.9 Type 2 diabetes mellitus without complications; R33.9 Retention of urine, unspecified; K59.00 Constipation, unspecified; B37.0 Candidal stomatitis; R19.7 Diarrhea, unspecified; F41.9 Anxiety disorder, unspecified; R82.81 Pyuria; B96.20 Unspecified Escherichia coli [E. coli] as the cause of diseases classified elsewhere; S09.90XA Unspecified injury of head, initial encounter; W07.XXXA Fall from chair, initial encounter; Y92.239 Unspecified place in hospital as the place of occurrence of the external cause; Z59.7 Insufficient social insurance and welfare support; M54.9 Dorsalgia, unspecified; L89.312 Pressure ulcer of right buttock, stage 2; Z96.0 Presence of urogenital implants
CPT/HCPCS: 11042; 36415; 51701; 51702; 51798; 70450; 80053; 80306; 80307; 81001; 81003; 83690; 84443; 85025; 87086; 87181; 87493; 87635; 93005; 96372; 97162; 97165; 97530; 97535; 99282; 99283; A6250; A9270; G0426; G0463; G0480; Q3014; 80320; 80329; 90834; 99212; 99213